=== PATIENT | male | born 1935 | race Caucasian/White ===

== ENCOUNTER 2021-03-18 08:48 | Inpatient (IN) | payer OTHER ==
[~2021-03-18] VITALS: Ht 160 cm; Wt 62.3 kg
--- NOTE | ~2021-03-18 | PROC ---
[address] [address] PROCEDURE REPORT Name: BURT EDDY Room: [address] ADM IN M.R.#: [id number] Admission: 03/18/21 Attend Phys: Ben Chiu Discharge: Date of : [birth year] Report #: [id number] THIS REPORT FOR: cc: Rafy Degroot MD, Vinod N. MD [facility],Medical Records Staff ~ For GI report, please see the Provation report in Perceptive 7 content. By: 0649Medical Records Staff [facility] /LUDY
[2021-03-18 08:51] VITALS: BP 143/78
[2021-03-18] MEDS ORDERED: CALCIUM + VITA1 EACH PO (09:00)
[2021-03-18] MEDS ORDERED: CENTRUM SILVER1 EAC5 PO (09:00)
[2021-03-18] MEDS ORDERED: SUPER B-COMPL400 MCG PO (09:01)
[2021-03-18] MEDS ORDERED: SAW PALMETTO450 MG PO (09:01)
[2021-03-18] MEDS ORDERED: IRON325 M1 PO (09:01)
[2021-03-18] MEDS ORDERED: B12 ACTIVE1000 MCG PO (09:01)
[2021-03-18] MEDS ORDERED: FISH OIL 1,001000 M3 PO (09:01)
[2021-03-18] MEDS ORDERED: D3-501250 MCG PO (09:01)
[2021-03-18] MEDS ORDERED: METAMUCIL1 EAC1 PO (09:02)
[2021-03-18] MEDS ORDERED: LUMIGAN2.5 M1 OPHTHALMIC (09:02)
[2021-03-18] MEDS ORDERED: UNISOM50 MG PO (09:02)
[2021-03-18] MEDS ORDERED: TIMOLOL GL0.5 %/5 M1 OPHTHALMIC (09:02)
[2021-03-18] MEDS ORDERED: LIPITOR10 MG PO (09:03)
[2021-03-18 09:25] LABS: ABSOLUTE BASOPHILS 0.1 thou/uL (0.0-0.2); ABSOLUTE EOSINOPHILS 0.6 thou/uL (0.0-0.7); ABSOLUTE LYMPHOCYTES 1.9 thou/uL (0.8-5.3); ABSOLUTE MONOCYTES 0.6 thou/uL (0.0-1.2); ABSOLUTE NEUTROPHILS 5.3 thou/uL (1.6-8.1); BASOPHILS 0.8 %; EOSINOPHILS 6.6 %; HEMOGLOBIN 12.2 gm/dL (14.0-18.0); LYMPHOCYTES 23.1 %; MCH 28.2 pg (26.0-34.0); MCV 85.4 fL (80.0-100.0); MONOCYTES 6.8 %; MPV 7.8 fl. (7.2-11.1); NUCLEATED RBCS 0 /100WBC; PLATELET COUNT* 279 thou/uL (150-400); POLYS 62.7 %; RBC 4.33 mil/uL (4.50-6.00); RDW-CV 14.6 % (10.5-14.5); WBC 8.4 thou/uL (4.0-11.0)
[2021-03-18 09:31] LABS: CALCIUM 8.6 mg/dL (8.5-10.1); CREATININE 1.4 mg/dL (0.6-1.3); POTASSIUM 4.3 mmol/L (3.5-5.1)
[2021-03-18 09:41] LABS: ALBUMIN 2.5 g/dL (3.4-5.0); MAGNESIUM 2.1 mg/dL (1.8-2.4); TOTAL BILIRUBIN 0.5 mg/dL (<0.1-1.0); TOTAL PROTEIN 7.2 g/dL (6.4-8.2)
--- NOTE | 2021-03-18 11:16 | EKG ---
[place] [address] ELECTROCARDIOGRAM REPORT Name: BURT EDDY Room: [facility]#: [id number] Admission: 03/18/21 Attend Phys: Discharge: Date of : [birth year] Date of Service: 03/18/21 0851 Report #: [id number] THIS REPORT FOR: //name// [facility] ED Test Date: 2021-03-18 Test Time: 08:51:24 Pat Name: BURT EDDY Department: Room: Gender: Senior Piping Designer: : 1935 Requested By: Rudy Navarro Order Number: [id number] MD: Ty Martinez Measurements Intervals [place] Rate: 74 P: 0 OH: 299 QRS: 23 QRSD: 91 T: 12 QT: 353 QTc: 392 Interpretive Statements Sinus rhythm low voltage Prolonged OH interval Baseline wander in lead(s) V5 Compared to ECG 02/26/2008 12:32:12 No significant changes Electronically Signed On 03-18-2021 11:16:44 QUALITY CONTROL REPRESENTATIVE by Ty Martinez [email or web address] <ELECTRONICALLY SIGNED> By: Ty Martinez MD, [facility] 03/18/21 1116 0851 0851 Ty Martinez MD, [facility] /EPI
--- NOTE | 2021-03-18 11:17 | EKG ---
[place] [address] ELECTROCARDIOGRAM REPORT Name: BURT EDDY Room: [facility]#: [id number] Admission: 03/18/21 Attend Phys: Discharge: Date of : [birth year] Date of Service: 03/18/21 0909 Report #: [id number] THIS REPORT FOR: //name// [facility] ED Test Date: 2021-03-18 Test Time: 09:09:10 Pat Name: BURT EDDY Department: Room: Gender: Triage Rn: : 1935 Requested By: Rudy Navarro Order Number: [id number] MD: Ty Martinez Measurements Intervals [place] Rate: 68 P: -45 UT: 293 QRS: 16 QRSD: 90 T: 4 QT: 366 QTc: 390 Interpretive Statements Sinus or ectopic atrial rhythm Ventricular premature complex Prolonged UT interval Low voltage, precordial leads Compared to ECG 03/18/2021 08:51:24 Ventricular premature complex(es) now present Electronically Signed On 03-18-2021 11:17:43 MARRIAGE COUNSELOR MINISTER by Ty Martinez [email or web address] <ELECTRONICALLY SIGNED> By: Ty Martinez MD, FACC 03/18/21 1117 Ty Martinez MD, [facility] /EPI
[2021-03-18 15:35] VITALS: BP 120/70
[2021-03-18 18:04] LABS: APTT 27.6 Seconds (25.0-31.3); INR 1.1; PROTIME 11.4 Seconds (9.20-11.50)
[2021-03-18 22:00] VITALS: BP 107/61
[2021-03-18 23:00] VITALS: BP 93/53
[2021-03-19] VITALS (30 sets, daily range): BP systolic 87–119; BP diastolic 37–81
[2021-03-19 05:09] LABS: ABSOLUTE LYMPHOCYTES 1.3 thou/uL (0.8-5.3); ABSOLUTE MONOCYTES 0.5 thou/uL (0.0-1.2); ABSOLUTE NEUTROPHILS 10.4 thou/uL (1.6-8.1); BASOPHILS 0.3 %; EOSINOPHILS 0.2 %; HEMATOCRIT 39.1 % (42.0-52.0); HEMOGLOBIN 12.7 gm/dL (14.0-18.0); LYMPHOCYTES 10.5 %; MCH 28.4 pg (26.0-34.0); MCHC 32.6 g/dL (28.0-37.0); MCV 87.1 fL (80.0-100.0); MONOCYTES 3.9 %; MPV 7.3 fl. (7.2-11.1); NUCLEATED RBCS 0 /100WBC; PLATELET COUNT* 281 thou/uL (150-400); POLYS 85.1 %; RBC 4.49 mil/uL (4.50-6.00); RDW-CV 15.3 % (10.5-14.5); WBC 12.2 thou/uL (4.0-11.0)
[2021-03-19 05:17] LABS: CALCIUM 7.7 mg/dL (8.5-10.1); CREATININE 1.4 mg/dL (0.6-1.3)
[2021-03-19 05:19] LABS: POTASSIUM 5.6 mmol/L (3.5-5.1)
--- NOTE | 2021-03-19 12:51 | NUR ---
Met with patient and /DPSUDHAKAR (Bong) at bedside to introduce role of CM. to bring copies of DPOA paperwork to put on file. Prior to admission, patient was living in a house with his . Stairs in the home, however patient uses stair lift to get to bedroom. Patient was fairly independent with ADLS. states that she does have to help him get dress sometimes, but patient could brush teeth and comb hair. Patient does not drive anymore. No hx of O2, bipap/cpap, SNF, dialysis, infustion therapy or BHS. Hx of HH through [facility] and hx of ARU at [facility]. PCP is Dr. Degroot. Patient and would like to go home with but is open to SNF or rehab, if needed. stated that if dc plan is home with , they do not want to use [facility] again. They felt that the care was not adequate. No HH preferences, other than "a good one". Discussed PPN. CM reached out to [facility] ( ). Services were started on 02/20 post dc from [facility] 02/19 and services ended on 03/09/21. Plan of Care: Patient is s/p surgery yesterday for perfurated ulcer in duodenum, per nursing. Midline incision and drains in place. O2 support via [place] (no home O2). Therapies will need to be ordered for patient to help with dc dispo. Patient to remain through the weekend. CM to continue to follow
[2021-03-20] VITALS (40 sets, daily range): BP systolic 73–175; BP diastolic 30–68
[2021-03-20 05:19] LABS: ABSOLUTE EOSINOPHILS 0.2 thou/uL (0.0-0.7); ABSOLUTE LYMPHOCYTES 1.1 thou/uL (0.8-5.3); ABSOLUTE MONOCYTES 0.6 thou/uL (0.0-1.2); ABSOLUTE NEUTROPHILS 9.9 thou/uL (1.6-8.1); BASOPHILS 0.1 %; EOSINOPHILS 1.8 %; HEMATOCRIT 35.7 % (42.0-52.0); HEMOGLOBIN 11.4 gm/dL (14.0-18.0); LYMPHOCYTES 9.2 %; MCH 28.2 pg (26.0-34.0); MCV 88.1 fL (80.0-100.0); MONOCYTES 4.8 %; MPV 7.8 fl. (7.2-11.1); NUCLEATED RBCS 0 /100WBC; PLATELET COUNT* 230 thou/uL (150-400); POLYS 84.1 %; RBC 4.05 mil/uL (4.50-6.00); RDW-CV 15.5 % (10.5-14.5); WBC 11.8 thou/uL (4.0-11.0)
[2021-03-20 05:21] LABS: CALCIUM 7.7 mg/dL (8.5-10.1); CREATININE 1.5 mg/dL (0.6-1.3); MAGNESIUM 1.8 mg/dL (1.8-2.4); PHOSPHORUS* 2.4 mg/dL (2.5-4.9); POTASSIUM 4.8 mmol/L (3.5-5.1)
[2021-03-21] VITALS (46 sets, daily range): BP systolic 76–126; BP diastolic 39–96
[2021-03-21 04:36] LABS: HEMATOCRIT 34.3 % (42.0-52.0); MCH 27.7 pg (26.0-34.0); MCV 86.6 fL (80.0-100.0); MPV 7.3 fl. (7.2-11.1); RBC 3.97 mil/uL (4.50-6.00); RDW-CV 15.2 % (10.5-14.5); WBC 20.5 thou/uL (4.0-11.0)
[2021-03-21 05:18] LABS: ALBUMIN 1.5 g/dL (3.4-5.0); CREATININE 1.3 mg/dL (0.6-1.3); POTASSIUM 4.7 mmol/L (3.5-5.1); TOTAL BILIRUBIN 0.3 mg/dL (<0.1-1.0); TOTAL PROTEIN 5.6 g/dL (6.4-8.2)
--- NOTE | 2021-03-21 06:58 | NUR ---
PT IS SLEEPING AT THIS TIME. O2 3L BNC INTACT NO ACUTE DISTRESS NOTED AT THIS TIME. PEDROZA INTACT AND PATENT DRAIING YELLOW URINE TO BEDSIDE BAG. BRYCE DRAIN INTACT DRAINING BLOODY DRAINAGE AT THIS TIME. PT CURRENTLY ON LEVOPHED DRIP, AMIRODORONE GTT AND NS. SEE EMAR FOR DETAILS. MIDLINE INCISION WITH WOUND VAC INTACT AT THIS TIME. MONITORS INTACT WITH ALARMS SET.
[2021-03-21 11:06] LABS: BE -6.7 mmol/L (-2 to +3); PCO2 41.1 mmHg (35.0-45.0)
[2021-03-21 11:14] LABS: pH 7.291 (7.340-7.450)
--- NOTE | 2021-03-21 11:25 | NUR ---
RECIEVED PT TACHYCARDIC. RHYTHM LOOKED IRREGULAR. AT ABOUT 0900 AN EKG WAS DONE WHICH CONFIRMED A. FIB WITH RVR. DR. MENDEZ WAS CALLED CARDIO HAS BEEN CONSULTED. HE SAID HE WASN'T ON HIS LIST, BUT GAVE A RECCOMENDATION OF TURNING UP AMIO GTT FROM 0.5 MG/MIN TO 1 MG/MIN FOR 6 HOURS. THIS RECCOMENDATION WAS COMMUNICATED TO DR. KEY AND AMIO GTT WAS TURNED UP TO 1 MG/MIN AT 1000. AT ABOUT 1030, DR. SAEZ WAS IN THE ROOM. PT HAS BEEN A LITTLE TACHYPNEIC SINCE HE WOKE UP ABOUT 0830, BUT HE WAS ALSO AGGITATED. PT NOW CALMER, BUT STILL TACHYPNEIC. BECAUSE OF TACHYPNEA, ABG AND CXR ORDERED BY DR. SAEZ. A. LINE NO LONGER DRAWING BLOOD OR TRANSDUCING, SO PER DR. SAEZ, A. LINE WAS REMOVED. AWAITING RESULTS FOR ABG AND CXR.
[2021-03-21 14:52] LABS: URINE BILIRUBIN NEGATIVE (Negative); URINE BLOOD 2+ (Negative); URINE COLOR YELLOW; URINE GLUCOSE-RANDOM NEGATIVE (Negative); URINE KETONES NEGATIVE (Negative); URINE LEUKOCYTES NEGATIVE (Negative); URINE NITRITE NEGATIVE (Negative); URINE PROTEIN TRACE (Negative); URINE UROBILINOGEN 0.2 E.U./dl (0.2-1.0)
[2021-03-21 14:53] LABS: URINE CLARITY HAZY
[2021-03-21 14:54] LABS: BACTERIA None Seen /HPF (None Seen); CASTS None Seen /LPF (None Seen); CRYSTALS None Seen /LPF (None Seen); SQUAMOUS 0-3 Few /LPF (0-3); URINE RBC 0-2 Rare /HPF (0-2); URINE WBC None Seen /HPF (0-5)
[2021-03-22] VITALS (50 sets, daily range): BP systolic 87–138; BP diastolic 37–108
[2021-03-22 04:51] LABS: HEMATOCRIT 34.4 % (42.0-52.0); MCH 27.8 pg (26.0-34.0); MCHC 31.9 g/dL (28.0-37.0); MCV 87.2 fL (80.0-100.0); MPV 7.1 fl. (7.2-11.1); NUCLEATED RBCS 0 /100WBC; PLATELET COUNT* 271 thou/uL (150-400); RBC 3.95 mil/uL (4.50-6.00); RDW-CV 15.3 % (10.5-14.5)
[2021-03-22 05:05] LABS: ALBUMIN 1.5 g/dL (3.4-5.0); CALCIUM 8.2 mg/dL (8.5-10.1); CREATININE 1.3 mg/dL (0.6-1.3); MAGNESIUM 1.8 mg/dL (1.8-2.4); PHOSPHORUS* 2.5 mg/dL (2.5-4.9); POTASSIUM 4.3 mmol/L (3.5-5.1); TOTAL BILIRUBIN 0.5 mg/dL (<0.1-1.0); TOTAL PROTEIN 5.7 g/dL (6.4-8.2)
--- NOTE | 2021-03-22 07:23 | NUR ---
PT AAOX2-3, VERY FORGETFUL, AND CONFUSION OVERNIGHT, CONSTANTLY YELLING FOR HELP. IVF INFUSING, CONTINUES ON LEVOPHED GTT. PRN PAIN MEDICATION ADMINISTERED, SEE EMAR FOR DOCUMENTATION. CALL LIGHT WITHIN REACH.
[2021-03-22 07:30] LABS: ABSOLUTE EOSINOPHILS 0.2 thou/uL (0.0-0.7); ABSOLUTE LYMPHOCYTES 1.3 thou/uL (0.8-5.3); ABSOLUTE MONOCYTES 0.7 thou/uL (0.0-1.2); ABSOLUTE NEUTROPHILS 19.8 thou/uL (1.6-8.1); PLATELET ESTIMATE ADEQUATE
[2021-03-22 07:31] LABS: HYPOCHROMASIA 1+
--- NOTE | 2021-03-22 14:51 | NUR ---
POC UPDATE: PT PRESENT WITH AMS, AAOX1. PER , PT NORMALLY "CAN CARRY ON A CONVERSATION." PT ON GTTS. PER MD, PT WILL POSS MOVE TO TELE IN A COUPLE OF DAYS.
--- NOTE | 2021-03-22 15:42 | 2DMMODE ---
[place] [address] 2 D/M-MODE ECHOCARDIOGRAM Name: JOANNEBURT YOUNGER Mary Room: [address] ADM IN .R.#: [id number] Admission: 03/18/21 Attend Phys: Kimberly Cui Discharge: Date of : [birth year] Date of Service: 03/22/21 1541 Report #: [id number] THIS REPORT FOR: cc: Rafy Degroot MD, Vinod N. MD Blick, David R. MD [facility] ~ APPROVED REPORT Study performed: 03/22/2021 14:51:21 EXAM: Comprehensive 2D, Doppler, and color-flow Echocardiogram Patient Location: In-Patient Room #: [facility] Status: routine BSA: 1.75 HR: 108 bpm BP: 87/62 mmHg Rhythm: Atrial Fibrillation Other Information Study Quality: Good Indications Atrial Fibrillation 2D Dimensions IVSd: 7.55 (7-11mm) LVOT Diam: 20.35 (18-24mm) LVDd: 37.19 mm PWd: 8.33 (7-11mm) Ascending Ao: 34.69 (22-36mm) LVDs: 28.13 (25-40mm) Aortic Root: 34.35 mm Volumes Left Atrial Volume (Systole) LA ESV Index: 18.60 mL/m2 Aortic Valve AoV Peak Lam.: 1.82 m/s AO Peak Gr.: 13.21 mmHg LVOT Max P.61 mmHg AO Mean Gr.: 6.58 mmHg LVOT Mean P.83 mmHg LVOT Max V: 0.95 m/s AO V2 VTI: 24.08 cm LVOT Mean V: 0.62 m/s IVAN (VTI): 1.58 cm2 LVOT V1 VTI: 11.69 [place] [address] 2 D/M-MODE ECHOCARDIOGRAM Name: BURT EDDY Room: [address] IN ..#: [id number] Admission: 03/18/21 Attend Phys: Kimberly Cui Discharge: Date of : [birth year] Date of Service: 03/22/21 1541 Report #: [id number] TDI Medial E' Lam.: 0.18 m/s Pulmonary Valve PV Peak Lam.: 0.93 m/s PV Peak Gr.: 3.43 mmHg Tricuspid Valve RAP Estimate: 5.00 mmHg TR Peak Gr.: 48.25 mmHg RVSP: 53.00 mmHg PA Pressure: 53.00 mmHg Left Ventricle The left ventricle is normal size. There is normal LV segmental wall motion. There is normal left ventricular wall thickness. Left ventricular systolic function is normal. The left ventricular ejection fraction is within the normal range. LVEF is 65-70%. This study is not technically sufficient to allow evaluation of the LV diastolic function due to atrial fibrillation. Right Ventricle Right ventricle is dilated. The right ventricular systolic function is normal. Atria The left atrium size is normal. The right atrium size is normal. Aortic Valve Aortic valve is calcified. No aortic regurgitation is present. Mild aortic stenosis. Mitral Valve The mitral valve is normal in structure. Mild mitral regurgitation. No evidence of mitral valve stenosis. Tricuspid Valve The tricuspid valve is normal in structure. Mild tricuspid regurgitation estimated pa pressure 50 mm Hg Pulmonic Valve The pulmonary valve is normal in structure. There is no pulmonic valvular regurgitation. Great Vessels The aortic root is normal in size. IVC [place] [address] 2 D/M-MODE ECHOCARDIOGRAM Name: JOANNEBURT YOUNGER Room: [address] IN [facility]#: [id number] Admission: 03/18/21 Attend Phys: Kimberly Cui Discharge: Date of : [birth year] Date of Service: 03/22/21 1541 Report #: [id number] Pericardium There is no pericardial effusion. <Conclusion> LVEF is 65-70%. Mild mitral regurgitation. Mild tricuspid regurgitation estimated pa pressure 50 mm Hg Mild aortic stenosis. <ELECTRONICALLY SIGNED> By: Ty Martinez MD, FACC 03/22/21 1541 1541 1541 Ty Martinez MD, FACC /INF
--- NOTE | 2021-03-22 16:58 | EKG ---
[place] [address] ELECTROCARDIOGRAM REPORT Name: BURT EDDY Room: [address] ADM IN M.R.#: [id number] Admission: 03/18/21 Attend Phys: Kimberly Cui Discharge: Date of : [birth year] Date of Service: 03/21/21 0939 Report #: [id number] THIS REPORT FOR: //name// [facility] Test Date: 2021-03-21 Test Time: 09:39:16 Pat Name: BURT EDDY Department: Room: [address] Gender: M Vacuum Cleaner Assembler: LORRI : 1935 Requested By: Kimberly Cui Order Number: [id number] Jess MD: Ty Martinez Measurements Intervals [place] Rate: 103 P: SC: QRS: 33 QRSD: 88 T: -32 QT: 299 QTc: 392 Interpretive Statements Atrial fibrillation Low voltage, extremity leads Minimal ST depression, inferior leads Baseline wander in lead(s) II,III,aVR,aVL,aVF Compared to ECG 03/18/2021 09:09:10 ST (T wave) deviation now present Ectopic atrial rhythm no longer present Electronically Signed On 03-22-2021 16:58:47 UPPER CUTTER MACHINE by Ty Martinez [email or web address] <ELECTRONICALLY SIGNED> By: Ty Martinez MD, [facility] 03/22/21 1658 8 Ty Martinez MD, [facility] /EPI
[2021-03-23] VITALS (22 sets, daily range): BP systolic 95–152; BP diastolic 46–89
[2021-03-23 06:40] LABS: HEMATOCRIT 32.2 % (42.0-52.0); HEMOGLOBIN 10.3 gm/dL (14.0-18.0); MCH 27.4 pg (26.0-34.0); MCV 85.7 fL (80.0-100.0); MPV 6.7 fl. (7.2-11.1); RBC 3.76 mil/uL (4.50-6.00); RDW-CV 15.2 % (10.5-14.5); WBC 16.2 thou/uL (4.0-11.0)
[2021-03-23 06:58] LABS: ALBUMIN 1.3 g/dL (3.4-5.0); CALCIUM 8.2 mg/dL (8.5-10.1); CREATININE 1.3 mg/dL (0.6-1.3); POTASSIUM 3.9 mmol/L (3.5-5.1); TOTAL BILIRUBIN 0.4 mg/dL (<0.1-1.0); TOTAL PROTEIN 5.3 g/dL (6.4-8.2)
[2021-03-23 15:54] LABS: BF RBC 2531 /mm3; TOTAL CELL COUNT 4273 /mm3
[2021-03-23 16:01] LABS: CLARITY HAZY; TOTAL VOLUME 910 ml
[2021-03-23 16:02] LABS: SOURCE PLEURAL FLUID
[2021-03-23 16:19] LABS: BF LYMPHOCYTES 5 %; BF POLYS 95 %
[2021-03-23 17:06] LABS: BE -1.4 mmol/L (-2 to +3); PCO2 VENOUS 50.8 mmHg (41.0-51.0); PO2 VENOUS 106.5 mmHg (35.0-45.0)
[2021-03-23 17:35] LABS: CALCIUM 8.2 mg/dL (8.5-10.1); CREATININE 1.2 mg/dL (0.6-1.3); POTASSIUM 3.6 mmol/L (3.5-5.1)
[2021-03-23 18:53] LABS: BE -1.8 mmol/L (-2 to +3); PCO2 41.6 mmHg (35.0-45.0); pH 7.369 (7.340-7.450)
[2021-03-23 18:55] LABS: PO2 58.4 mmHg (75.0-100.0)
[2021-03-24] VITALS (10 sets, daily range): BP systolic 103–117; BP diastolic 47–65
[2021-03-24 05:26] LABS: ABSOLUTE EOSINOPHILS 0.7 thou/uL (0.0-0.7); ABSOLUTE LYMPHOCYTES 1.2 thou/uL (0.8-5.3); ABSOLUTE NEUTROPHILS 12.8 thou/uL (1.6-8.1); BASOPHILS 0.3 %; EOSINOPHILS 4.5 %; HEMATOCRIT 28.4 % (42.0-52.0); HEMOGLOBIN 9.3 gm/dL (14.0-18.0); LYMPHOCYTES 7.4 %; MCH 28.3 pg (26.0-34.0); MCHC 32.7 g/dL (28.0-37.0); MCV 86.4 fL (80.0-100.0); MONOCYTES 6.5 %; NUCLEATED RBCS 0 /100WBC; PLATELET COUNT* 230 thou/uL (150-400); POLYS 81.3 %; RBC 3.29 mil/uL (4.50-6.00); RDW-CV 15.5 % (10.5-14.5); WBC 15.8 thou/uL (4.0-11.0)
[2021-03-24 05:32] LABS: ALBUMIN 2.1 g/dL (3.4-5.0); CALCIUM 8.1 mg/dL (8.5-10.1); CREATININE 1.3 mg/dL (0.6-1.3); MAGNESIUM 2.2 mg/dL (1.8-2.4); TOTAL BILIRUBIN 0.5 mg/dL (<0.1-1.0); TOTAL PROTEIN 5.4 g/dL (6.4-8.2)
--- NOTE | 2021-03-24 10:40 | EKG ---
[place] [address] ELECTROCARDIOGRAM REPORT Name: BURT EDDY Room: [address] ADM IN M.R.#: [id number] Admission: 03/18/21 Attend Phys: Kimberly Cui Discharge: Date of : [birth year] Date of Service: 03/24/21 1028 Report #: [id number] THIS REPORT FOR: //name// [facility] Test Date: 2021-03-24 Test Time: 10:28:04 Pat Name: BURT EDDY Department: Room: [address] Gender: M Automation Controls Expert: NEREIDA : 1935 Requested By: Kirstin Norman Order Number: [id number] Reading MD: Ty Martinez Measurements Intervals [place] Rate: 62 P: 0 NE: 179 QRS: 21 QRSD: 74 T: QT: 524 QTc: 533 Interpretive Statements atrial fibrillation Low voltage, extremity leads Prolonged QT interval Baseline wander in lead(s) V1 Compared to ECG 03/21/2021 09:39:16 Prolonged QT interval now present rate has slowed Electronically Signed On 03-24-2021 10:40:34 AUTOMOTIVE TIRE TESTING SUPERVISOR by Ty Martinez [email or web address] <ELECTRONICALLY SIGNED> By: Ty Martinez MD, FACC 03/24/21 1040 1028 1028 Ty Martinez MD, FACC /EPI
[2021-03-24 17:11] LABS: CALCIUM 8.1 mg/dL (8.5-10.1); CREATININE 1.4 mg/dL (0.6-1.3); POTASSIUM 3.6 mmol/L (3.5-5.1)
--- NOTE | 2021-03-24 17:18 | NUR ---
POC UPDATE: PT IS ON 3L O2. ABX.
--- NOTE | 2021-03-24 17:22 | CON ---
[address] [address] CONSULTATION Name: BURT EDDY Room: [address] IN .R.#: [id number] Admission: 03/18/21 Attend Phys: Ben Chiu Discharge: Date of : [birth year] Report #: [id number] THIS REPORT FOR: cc: Rafy Degroot MD, Vinod N. MD Namin, Farid M. MD ~ DATE OF CONSULTATION: 03/19/2021 REASON FOR CONSULTATION: Abnormal CT. HISTORY OF PRESENT ILLNESS: This is an 85-year-old male with history of abdominal pain, which has been going on for a few days. The patient presented to Emergency Room with the same complaint and found to have perforated viscus as there was air in the intraabdominal cavity. There was also a colonic mass noted in the CT. Subsequently, the patient was taken to OR for exploratory laparotomy and a perforated duodenal ulcer was noted, which was repaired with omental patch and gastrojejunostomy feeding tube was placed. We were consulted in reference to patient's colon findings. Currently, the patient is confused, complaining of abdominal pain and is not cooperative with our questioning. PAST MEDICAL AND SURGICAL HISTORY: Significant for dyslipidemia, iron deficiency anemia, history of hernia repair, bowel obstruction, tonsillectomy, appendectomy. ALLERGIES: Significant to PENICILLIN. MEDICATIONS: Please refer to MAR. SOCIAL HISTORY: The patient lives at home with his . Denies tobacco or alcohol use. FAMILY HISTORY: Noncontributory. PHYSICAL EXAMINATION: VITAL SIGNS: Blood pressure of 108/69, respirations 18, pulse 88, temperature is 36.7 centigrade. LUNGS: Clear. CARDIOVASCULAR: Regular. ABDOMEN: Soft, tender to palpation. Jejunostomy tube in place. NEUROLOGIC: The patient is somewhat confused [place] [address] CONSULTATION Name: JOANNEBURT YOUNGER Room: [address]#: [id number] Admission: 03/18/21 Attend Phys: Ben Chiu Discharge: Date of : [birth year] Report #: [id number] LABORATORY DATA: Reveal WBC of 12.2, hemoglobin is 12.7, and platelets 281. Sodium is 138, potassium 5.6, BUN is 23, creatinine 1.4. INR is 1.1, glucose is 101. IMAGING: CT of abdomen and pelvis on admission revealed free intraperitoneal air consistent with bowel perforation. There is a small gallstone and fluid around the gallbladder. There is also a significant abnormality in the sigmoid colon and descending colon junction, which is concerning for a mass or a tumor in this region. ASSESSMENT AND PLAN: The patient with perforated duodenal ulcer, status post omental patch with gastrojejunostomy tube placement. The patient should be on Protonix IV b.i.d. We will consider EGD and colonoscopy in 2 months. We will continue monitoring the patient progress in the hospital. <ELECTRONICALLY SIGNED> By: Saturnino Leigh MD 03/24/21 1722 1629 1921Saturnino Leigh MD /nt
[2021-03-25] VITALS (42 sets, daily range): BP systolic 18–124; BP diastolic 44–66
[2021-03-25 05:18] LABS: HEMATOCRIT 27.5 % (42.0-52.0); MCH 28.6 pg (26.0-34.0); MCHC 32.7 g/dL (28.0-37.0); MCV 87.5 fL (80.0-100.0); MPV 7.2 fl. (7.2-11.1); RBC 3.14 mil/uL (4.50-6.00); RDW-CV 15.7 % (10.5-14.5); WBC 16.8 thou/uL (4.0-11.0)
[2021-03-25 05:53] LABS: CALCIUM 8.2 mg/dL (8.5-10.1); CREATININE 1.5 mg/dL (0.6-1.3); POTASSIUM 3.8 mmol/L (3.5-5.1)
[2021-03-25 11:46] LABS: DIRECT BILIRUBIN 0.1 mg/dL (<0.1-0.3); TOTAL BILIRUBIN 0.4 mg/dL (<0.1-1.0); TOTAL PROTEIN 6.1 g/dL (6.4-8.2)
[2021-03-25 15:14] LABS: CALCIUM 8.1 mg/dL (8.5-10.1); CREATININE 1.6 mg/dL (0.6-1.3); MAGNESIUM 2.3 mg/dL (1.8-2.4); POTASSIUM 4.6 mmol/L (3.5-5.1)
[2021-03-26] VITALS (36 sets, daily range): BP systolic 74–174; BP diastolic 19–112
[2021-03-26 05:14] LABS: HEMATOCRIT 24.9 % (42.0-52.0); HEMOGLOBIN 7.9 gm/dL (14.0-18.0); MCH 28.1 pg (26.0-34.0); MCHC 31.5 g/dL (28.0-37.0); MCV 89.1 fL (80.0-100.0); MPV 7.4 fl. (7.2-11.1); RBC 2.8 mil/uL (4.50-6.00); RDW-CV 16.1 % (10.5-14.5); WBC 11.9 thou/uL (4.0-11.0)
[2021-03-26 05:32] LABS: CALCIUM 7.9 mg/dL (8.5-10.1); CREATININE 1.6 mg/dL (0.6-1.3); POTASSIUM 4.3 mmol/L (3.5-5.1)
--- NOTE | 2021-03-26 07:07 | NUR ---
ASSUMED PT CARE AT APPROX 1930. PT IS AWAKE-CONFUSED AND RESTLESS. AFIB ON THE RADIATION ONCOLOGY THERAPIST. NO DESATURATIONS NOTED ON 3L OF O2. PRECEDEX TITRATED CHARTED. PT RESTED ON AND OFF THROUGH THE NIGHT. DECREASED URINE OUTPUT, DR HYLTON AWARE, INCREASE IVF RATE TO 120 ORDERED. KEPT CLOSELY MONITORED.
[2021-03-26 10:07] LABS: BODY FLUID PROTEIN 2.5 g/dL (())
--- NOTE | 2021-03-26 11:00 | NUR ---
POC UPDATE: PRECEDEX. PLAN ENEMA, MAG. NO WEEKEND NEEDS.
[2021-03-26 13:07] LABS: CREATININE 1.5 mg/dL (0.6-1.3); MAGNESIUM 2.3 mg/dL (1.8-2.4)
[2021-03-27] VITALS (23 sets, daily range): BP systolic 132–199; BP diastolic 62–100
[2021-03-27 05:41] LABS: ABSOLUTE EOSINOPHILS 0.5 thou/uL (0.0-0.7); ABSOLUTE LYMPHOCYTES 1.2 thou/uL (0.8-5.3); ABSOLUTE MONOCYTES 0.6 thou/uL (0.0-1.2); ABSOLUTE NEUTROPHILS 13.8 thou/uL (1.6-8.1); BASOPHILS 0.3 %; EOSINOPHILS 3.1 %; HEMATOCRIT 25.9 % (42.0-52.0); HEMOGLOBIN 8.3 gm/dL (14.0-18.0); LYMPHOCYTES 7.7 %; MCHC 32.2 g/dL (28.0-37.0); MCV 86.8 fL (80.0-100.0); MONOCYTES 3.7 %; MPV 7.6 fl. (7.2-11.1); NUCLEATED RBCS 0 /100WBC; POLYS 85.2 %; RBC 2.98 mil/uL (4.50-6.00); RDW-CV 16.1 % (10.5-14.5); WBC 16.1 thou/uL (4.0-11.0)
[2021-03-27 06:03] LABS: ALBUMIN 2.9 g/dL (3.4-5.0); CALCIUM 8.5 mg/dL (8.5-10.1); CREATININE 1.3 mg/dL (0.6-1.3); MAGNESIUM 2.4 mg/dL (1.8-2.4); POTASSIUM 4.4 mmol/L (3.5-5.1); TOTAL BILIRUBIN 0.5 mg/dL (<0.1-1.0); TOTAL PROTEIN 6.1 g/dL (6.4-8.2)
[2021-03-27 06:04] LABS: PLATELET COUNT* 247 thou/uL (150-400)
[2021-03-28] VITALS (19 sets, daily range): BP systolic 133–166; BP diastolic 59–80
[2021-03-29] VITALS (7 sets, daily range): BP systolic 121–149; BP diastolic 51–78
--- NOTE | 2021-03-29 10:02 | NUR ---
PTS TUBE FEED RATE INCREASED TO 40ML/HR
--- NOTE | 2021-03-29 15:41 | NUR ---
CM FOLLOWUP PT MEETING WITH PT AND OT TO DETERMINE ELEIGIBILITY FOR REHAB OR SKILLED. PT OPEN TO SKILLED, BUT IDEALLY SEEKING DC HOME WITH HH. CM TO FOLLOWUP.
--- NOTE | 2021-03-29 16:06 | PATH ---
[address] [address] PATHOLOGY RPT PROCEDURE Name: BURT EDDY Room: [address] IN [facility]#: [id number] Admission: 03/18/21 Date of : [birth year] Discharge: Report #: [id number] Path Case #: [id number] Note [facility] Accession Number: [id number] TESTS RESULT FLAG UNITS REF RANGE LAB Clinician Provided Cytology Information No. of containers..01 Other (Miscellaneous) Source: RIGHT PLEURAL FLUID DIAGNOSIS: 02 RIGHT PLEURAL FLUID NEGATIVE FOR MALIGNANT CELLS. REACTIVE MESOTHELIAL CELLS AND ABUNDANT ACUTE INFLAMMATION. THIS INTERPRETATION INCLUDES EVALUATION OF A CELL BLOCK. Signed out by: 02 Alan Rain MD, Pathologist NPI- [id number] Performed by: 01 Haresh Patel II, Refrigeration Insulator ([facility]) Gross description: 01 60 ML, SALMERON YELLOW, CLOUDY /LCS 03/25/2021 0227 Local FLAG LEGEND: L-Low Normal,H-High Normal,LL-Alert Low,HH-Alert High <-Panic Low,>-Panic High,A-Abnormal,AA-Critical Abnormal Performed at: [address] [place] [address] Justin Bowman MD, [address] [place] [address] [address] [place] [address] Alan Rain MD, Specimen Comment: A courtesy copy of this report has been sent to [phone], [phone] Specimen Comment: [phone] Specimen Comment: Report sent to / DR DARNELL Performed at: [address], [place], [place] [id number] MD Justin Bowman MD Phone: [phone]
--- NOTE | 2021-03-29 16:22 | CON ---
[address] [address] CONSULTATION Name: BURT EDDY Room: [address] IN M.R.#: [id number] Admission: 03/18/21 Attend Phys: Ben Chiu Discharge: Date of : [birth year] Report #: [id number] THIS REPORT FOR: cc: Rafy Degroot MD, Vinod N. MD Pervez, Adeel MD ~ DATE OF CONSULTATION: 03/23/2021 REQUESTING PHYSICIAN: Darío Hester MD INDICATION FOR CONSULTATION: Pleural effusions/anasarca and severe hypoalbuminemia. HISTORY OF PRESENT ILLNESS: This is an 85-year-old gentleman. His past medical history is as mentioned below. He does not have any previous known history of a cardiac or respiratory disease. He is also a lifetime nonsmoker and he has had 3 doses of mRNA COVID-19 vaccine. The patient was recently admitted to [facility]. He has a history of multiple hernias in the past while at [facility] and told that he was found to have a colon mass and a perforated bowel, for which he underwent surgery. He presented here again with acute abdomen at this time and he was noted to have a perforated peptic ulcer for which he has had a surgery performed again. The patient currently has a GJ tube in place as well. The patient initially did have acute renal insufficiency with a creatinine rising up to 1.5. He also was hypotensive and has received large amounts of IV fluids as a result, has been on vasopressors as well. This morning, he had significant bilateral pleural effusions on the x-ray, more on the right than the left. He has had 2 CTs performed as well, which do show fluid overload and infiltrates, no pulmonary emboli. He does, however, have pulmonary hypertension. We proceeded to performing a thoracentesis on the right side. He currently is around 5-6 liters nasal cannula, saturating in the low 90s. Currently, he is hemodynamically stable. He has mild swelling of lower extremities. He continues to complain of significant abdominal pain. He has just been started on trickle tube feeds by the Surgery Service. The patient provided limited responses to questions asked for review of systems. Review of systems as obtained from the patient is negative except as mentioned above for 12 points, but it does not appear to me that the patient fully understood the questions asked for review of systems. PAST MEDICAL HISTORY: Recent surgery for colon mass/[place] [address] CONSULTATION Name: BURT EDDY Room: [address] IN [facility]#: [id number] Admission: 03/18/21 Attend Phys: Ben Chiu Discharge: Date of : [birth year] Report #: [id number] perforated peptic ulcer as above, status post GJ tube placement. Echocardiogram performed recently shows a normal left ventricular ejection fraction, mild aortic stenosis, pulmonary artery systolic in the low 50s, appendectomy, tonsillectomy. SOCIAL HISTORY: Lifetime nonsmoker. No known history of heavy alcohol use or illegal drug use. CURRENT MEDICATIONS: List in [facility] reviewed. HOME MEDICATIONS: List also in [facility] reviewed. ALLERGIES: REPORTED ALLERGY TO PENICILLIN. He currently is on meropenem. He is tolerating it without reaction. FAMILY HISTORY: No pertinent family history. IMMUNIZATION HISTORY: Three doses of an mRNA COVID-19 vaccine. PHYSICAL EXAMINATION: GENERAL: He is alert, awake and oriented, provides a limited history. VITAL SIGNS: Though, the pulse of 82 and a blood pressure of 126/67, heart rate in the low 90s on 5 liters nasal cannula. Respiratory rate mildly elevated to 22. He is afebrile with a temperature of 36.8 now, did have a high-grade fever up to 38.0 yesterday. HEENT: Head is normocephalic and atraumatic. Pupils are equal and reactive. There is no throat erythema. NECK: Does not show raised JVP, asymmetry, mass or lymph nodes. CHEST: Symmetrical expansion on inspection and palpation. On auscultation, breath sounds are decreased bilateral bases. HEART: Regular. There is a soft systolic murmur. ABDOMEN: Soft. There is some tenderness on palpation of the abdomen, but he is postop. EXTREMITIES: Lower extremities, trace edema, no calf tenderness. SKIN: Dry and intact. NEUROLOGIC: Moves all extremities bilaterally equally and spontaneously with no focal deficit identified. LABORATORY DATA: The patient's lab work is in [facility]. This is reviewed. He has severe malnutrition. Albumin is down to 1.3 this morning. Arterial blood gas, which is consistent with acute hypoxemic respiratory failure in [facility] reviewed. ____ have metabolic acidosis as well. ASSESSMENT AND PLAN: [address] [address] CONSULTATION Name: BURT EDDY Room: [address] IN [place]#: [id number] Admission: 03/18/21 Attend Phys: Ben Chiu Discharge: Date of : [birth year] Report #: [id number] 1. Acute hypoxemic respiratory failure, this is primarily due to pleural effusions. He has infiltrates as well. At first glance, pleural effusions appear to be related to third spacing and total body fluid overload, but this needs to be evaluated further. 2. Bilateral pleural effusions, right greater than left. We proceeded with thoracentesis on the right side. The fluid has been sent for analysis and would be followed. At first glance, it was suspected that this may be a transudative pleural effusion, but we will need to review further and assess. 3. Severe malnutrition/hypoalbuminemia/third spacing. I discontinued his IV fluids for now. We will start giving him albumin. We will give him small amounts of Lasix as well, but we will need to watch his blood pressure as well as creatinine closely. For now, if needed, we will use phenylephrine to maintain blood pressure. We will follow electrolytes and creatinine and if needed, we will restart crystalloid IV fluids if indicated. It will be possible that his sodium rises with these therapies ordered today. If so, we will address. However, it is noted that the primary etiology causing hypoalbuminemia is severe malnutrition and benefit from albumin will be transient unless underlying nutritional issues are addressed. I would defer to the Surgery Service regarding whether his tube feeds could be advanced. If this is not the case, then I recommend considering TPN in the meantime. 4. Pulmonary infiltrates. He does have significant bilateral pulmonary infiltrates, more at the right lung base. He has been on meropenem for several days and was more recently also started on vancomycin. Pending further evaluation, I decided to continue broad-spectrum antibiotic coverage; however, he is high risk for nephrotoxicity from vancomycin, so switch this over to linezolid. Once he is close to euvolemic state, we will plan on obtaining a repeat CT chest for following up on these infiltrates. 5. Atrial fibrillation with rapid ventricular response. He did have some episodes earlier. Cardiology Services on the case. I gave him magnesium. We will follow potassium and replace as indicated. 6. Peptic ulcer perforation/colon mass/bowel perforation. The Surgery Service is on the case. 7. Deep vein thrombosis prophylaxis. He is currently on prophylactic dose Lovenox. I would be deferring to the Surgery and Cardiology Service regarding whether at some point full anticoagulation is considered. 8. Gastrointestinal prophylaxis. He is already on b.i.d. IV Protonix. Thanks for this consultation. <ELECTRONICALLY SIGNED> By: Juancarlos Espinosa MD 03/29/21 1622 1906 Taya Espinosa MD /nt
--- NOTE | 2021-03-29 17:21 | NUR ---
PT ALERT TO SELF AND LOCATION THIS DATE. PT DOES YELL OUT FREQUENTLY, HOWEVER REQUESTS MOUTH SWABS AND OCCASIONALLY PAIN MEDICATION. PTS BRYCE DRAIN LEAKING AROUND SITE SO OUTPUT ROUGHLY INACCURATE R/T UNMEASURABLE. PT HAD X2 BMS THIS SHIFT, INCONTINENT. TPN STOPPED THIS DATE. TUBE FEEDS AT 50ML/HR, WHICH IS GOAL. RESIDUAL J-TUBE CHECKED X2 THIS SHIFT AND WAS <5ML EACH TIME. A FLUTTER/FIB ON CONTINUOUS TELE. PT TITRATED FROM 5L VIA NC TO 4L O2 THIS SHIFT. Q2H TURNS. CAME TO BEDSIDE AND STAYED FROM 9 AM TO 3PM.
[2021-03-30 04:35] VITALS: BP 156/83
[2021-03-30 04:54] LABS: ABSOLUTE BASOPHILS 0.1 thou/uL (0.0-0.2); ABSOLUTE EOSINOPHILS 0.5 thou/uL (0.0-0.7); ABSOLUTE LYMPHOCYTES 1.4 thou/uL (0.8-5.3); ABSOLUTE MONOCYTES 0.9 thou/uL (0.0-1.2); ABSOLUTE NEUTROPHILS 11.7 thou/uL (1.6-8.1); BASOPHILS 0.8 %; EOSINOPHILS 3.5 %; HEMOGLOBIN 8.8 gm/dL (14.0-18.0); LYMPHOCYTES 9.7 %; MCH 27.8 pg (26.0-34.0); MCHC 32.7 g/dL (28.0-37.0); MONOCYTES 6.2 %; MPV 7.9 fl. (7.2-11.1); NUCLEATED RBCS 0 /100WBC; PLATELET COUNT* 260 thou/uL (150-400); POLYS 79.8 %; RBC 3.18 mil/uL (4.50-6.00); RDW-CV 15.9 % (10.5-14.5); WBC 14.7 thou/uL (4.0-11.0)
[2021-03-30 05:11] LABS: CALCIUM 8.3 mg/dL (8.5-10.1); CREATININE 1.1 mg/dL (0.6-1.3); POTASSIUM 3.7 mmol/L (3.5-5.1)
--- NOTE | 2021-03-30 06:46 | NUR ---
ASSUMED PT CARE AT APPROX 1930. PT IS AWAKE, ORIENTED TO SELF AND PLACE. PT IS NOT IN DISTRESS, NO DESATURATIONS NOTED ON 4L OF O2. MIDLINE INCISION IS CDI. BRYCE DRAIN LEAKS SOME. J-TUBE FEEDING WITH JEVITY WELL TOLERATED. G TUBE TO LIS, WITH SMALL AMOUNT OF BILOUS OUTPUT. PAIN MEDS GIVEN PER JUN WITH PARTIAL RELIEF. NO ACUTE CHANGES THIS SHIFT. CALL LIGHT WITHIN REACH. HOURLY ROUNDING DONE FOR PT SAFETY. HIGH FALL PRECAUTIONS IN PLACE.
[2021-03-30 08:00] VITALS: BP 142/61
--- NOTE | 2021-03-30 09:54 | EKG ---
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 Accordion: : 1935 Requested By: Ty Martinez Order Number: [id number] Jess MD: Dmitri Ahn Measurements Intervals [place] Rate: 83 P: AL: QRS: 74 QRSD: 66 T: 8 QT: 471 QTc: 554 Interpretive Statements Atrial fibrillation Low voltage, precordial leads Borderline T abnormalities, anterior leads Prolonged QT interval Compared to ECG 03/24/2021 10:28:04 T-wave abnormality now present Electronically Signed On 03-30-2021 9:54:12 RECEIVING MANAGER by Dmitri Ahn [email or web address] <ELECTRONICALLY SIGNED> By: Dmitri Ahn MD, [facility] 03/30/21 0954 07 180 Dmitri Ahn MD, [facility] /EPI
--- NOTE | 2021-03-30 15:44 | NUR ---
CM FOLLOWUP PT NOT MEDICALLY CLEAR TO DC DUE TO ULCER. CM TO CONTINUE TO FOLLOW FOR CM NEEDS.
[2021-03-30 16:18] LABS: BE 7.5 mmol/L (-2 to +3); PCO2 VENOUS 33.6 mmHg (41.0-51.0); PO2 VENOUS 172.4 mmHg (35.0-45.0)
--- NOTE | 2021-03-30 16:31 | NUR ---
dr sharma notified of vbg resulting
--- NOTE | 2021-03-30 17:25 | NUR ---
PT GOT UP TO CHAIR WITH THERAPY THIS SHIFT. REMAINS ALERT TO SELF, OCCASIONALLY PLACE. ABG UTO BY RT; VBG OBTAINED INSTEAD. DR DARNELL READ THESE RESULTS; NO FURTHER ORDERS REGARDING. TITRATED DOWN TO 3L VIA NC. PEDROZA REMOVED THIS SHIFT PER DR ALMANZA. IJ REMOVED THIS SHIFT. G TUBE REMOVED FROM LIS THIS SHIFT. J TUBE CONTINUES TUBE FEEDS AT GOAL OF 50ML/HR. RESIDUAL <10ML EACH CHECK X3. PTS VISITED SEVERAL HOURS THIS SHIFT.
[2021-03-30 20:00] VITALS: BP 141/83
[2021-03-31 00:30] VITALS: BP 131/69
[2021-03-31 04:39] VITALS: BP 141/69
--- NOTE | 2021-03-31 07:52 | NUR ---
NO ACUTE CHANGES OVER NIGHT. PT IS STILL CONFUSED BUT AAN ANSWER SOME SIMPLE QUESTIONS AND CAN FOLLOW SIMPLE COMMANDS. JEVITY FEEDING THROUGH J-TUBE WELL TOLERATED NO RESIDUALS NOTED. PAIN MEDS GIVEN PER MAR. PT IS INCONTINENT OF BOWEL AND BLADDER. PT IS KEPT CLEAN AND DRY NEED, POSITION CHANGES DONE. PT IS CLOSELY MONITORED
[2021-03-31 09:15] VITALS: BP 130/62
[2021-03-31 12:00] VITALS: BP 133/73
[2021-03-31 16:00] VITALS: BP 131/64
[2021-03-31 16:06] LABS: HEMATOCRIT 29.3 % (42.0-52.0); HEMOGLOBIN 9.5 gm/dL (14.0-18.0); MCH 27.7 pg (26.0-34.0); MCHC 32.5 g/dL (28.0-37.0); MCV 85.2 fL (80.0-100.0); MPV 7.3 fl. (7.2-11.1); RBC 3.44 mil/uL (4.50-6.00); RDW-CV 16.1 % (10.5-14.5); WBC 14.9 thou/uL (4.0-11.0)
[2021-03-31 16:13] LABS: CALCIUM 8.7 mg/dL (8.5-10.1); CREATININE 1.1 mg/dL (0.6-1.3); POTASSIUM 4.2 mmol/L (3.5-5.1)
--- NOTE | 2021-03-31 17:17 | NUR ---
CM FOLLOWUP PT NOT MEDICALLY CLEAR. PT WORKING WELL WITH THERAPIES AND OPEN TO REHAB SERVICES. REHAB CONSULT TO BE SUBMITTED.
--- NOTE | 2021-03-31 18:57 | NUR ---
Assumed care of pt at 0700, received report from EVIE Painter. Upon assessment, pt crying out in pain and for help. Pt is A&OX2, self and place, with confusion and forgetfulness noted. Pt has c/o severe pain in the abd region. Pt is post op abd surgery (03/19/21). Pt afebrile at the start of shift and at 1700 had a low grade temp of 99.9F. Pt's lungs are course and diminished, NPC, 2L NC, pt's respirations vary from regular rates to dyspnic episodes with positioning. Pt's monitor showing Afib with occ PVCs, HR controlled, BP within normal range for pt at 130/62. Pt has 1/1 pulses, non pitting edema in the BLE, and 1-2+ pitting edema in the hips and pelvic region. Pt has hypo-normoactive BSX4. Abd is firm, distended, tender upon any palpation. Pt's abdomen has become slightly larger and more distended than at the beginning of this RN's start of shift. Pt still has the midline incision wound covered with dressings. RUQ BRYCE drain to bulb suction with a change in output over the course of the shift. BRYCE drain has had increased secretions/drainage with the first dump measuring at 80mls, second: 25mls, and the third: over 100mls at 1700. Drainage is noted to be yellow with small blood clots from time to time. Pt still has GJ tube in place with tubefeeds running into the J tube at 50mls/hr (Jevity 1.5) which was at goal rate for pt. Due to increased pain, distention, and drainage, tube feeds were held per Dr. Cui's verbal order at the bedside around [id number] today. Surgical team aware and no further orders were received from them at this time. Pt still having extreme pain and distention after several hours of the tubefeeds being shut off. G tube was clamped but d/t distention/pain, G tube back to LIS. Small brown drainage noted (10mls). Pt's last BM was monday night/early Monday morning, however pt did not have a BM on this RN's shift. Pt given scheduled suppository and Lactulose. Monitoring pt's bowel status. Ellis D/C'd yesterday (03/30), pt is incontinent of both bowel and bladder. Bladder scan performed, 188mls max in pt's bladder. Other than the surgical wounds and incisions, pt's skin is intact. Pt's at the bedside for a majority of the day. RN consulted and reported pt's condition to Dr. Cui, new orders received. IVF started, Zosyn to be given on next shift, and a CTa of abd/pelvis with contrast ordered. Will continue to monitor and make changes to pt's care as ordered and needed.
[2021-03-31 20:00] VITALS: BP 165/88
[2021-04-01] VITALS (7 sets, daily range): BP systolic 118–151; BP diastolic 50–83
[2021-04-01 04:15] LABS: ABSOLUTE BASOPHILS 0.1 thou/uL (0.0-0.2); ABSOLUTE EOSINOPHILS 0.5 thou/uL (0.0-0.7); ABSOLUTE LYMPHOCYTES 1.2 thou/uL (0.8-5.3); ABSOLUTE MONOCYTES 1.2 thou/uL (0.0-1.2); ABSOLUTE NEUTROPHILS 12.1 thou/uL (1.6-8.1); BASOPHILS 0.4 %; EOSINOPHILS 3.4 %; HEMATOCRIT 28.6 % (42.0-52.0); HEMOGLOBIN 9.2 gm/dL (14.0-18.0); LYMPHOCYTES 7.8 %; MCH 27.9 pg (26.0-34.0); MCHC 32.3 g/dL (28.0-37.0); MCV 86.3 fL (80.0-100.0); MONOCYTES 7.9 %; MPV 7.5 fl. (7.2-11.1); NUCLEATED RBCS 0 /100WBC; PLATELET COUNT* 314 thou/uL (150-400); POLYS 80.5 %; RBC 3.31 mil/uL (4.50-6.00); RDW-CV 16.6 % (10.5-14.5)
[2021-04-01 05:06] LABS: CALCIUM 8.3 mg/dL (8.5-10.1); CREATININE 1.1 mg/dL (0.6-1.3); MAGNESIUM 2.3 mg/dL (1.8-2.4); PHOSPHORUS* 4.3 mg/dL (2.5-4.9); POTASSIUM 4.3 mmol/L (3.5-5.1)
--- NOTE | 2021-04-01 07:43 | NUR ---
PATIENT SLEPT PART OF THE NIGHT. BAUTISTA WAS TAKEN DOWN FOR ABDOMINAL CT ORDERED. PATIENT WAS STILL YELLING OUT IN PAIN AFTER HYDROCODONE WAS GIVEN. DR DARNELL WAS CALLED ORDER RECEIVED TO RESTART HIS DILAUDID IV. PAIN MEDICINE WAS GIVEN TWICE. IV FLUIDS AND ZOSYN WERE STARTED ORDERED. WILL CONTINUE TO MONITOR.
--- NOTE | 2021-04-01 11:10 | NUR ---
The patient will be scheduled thoracentesis and paracentesis tomorow because the patient was given Lovenox. The lovenox was placed on hold and the tube feeding will remain off.
--- NOTE | 2021-04-01 14:12 | NUR ---
CM FOLLOWUP PT NOT MEDICALLY CLEAR. PT TO HAVE ABCESS DRAINED BY IR. REHAB CONSULT SUBMITTED. CM TO EVANGELISTA.
[2021-04-02] VITALS (11 sets, daily range): BP systolic 106–173; BP diastolic 49–96
[2021-04-02 05:55] LABS: CALCIUM 8.5 mg/dL (8.5-10.1); CREATININE 1.2 mg/dL (0.6-1.3); HEMATOCRIT 28.7 % (42.0-52.0); HEMOGLOBIN 9.5 gm/dL (14.0-18.0); MCH 28.6 pg (26.0-34.0); MCHC 33.2 g/dL (28.0-37.0); MCV 86.1 fL (80.0-100.0); MPV 7.6 fl. (7.2-11.1); POTASSIUM 4.3 mmol/L (3.5-5.1); RBC 3.33 mil/uL (4.50-6.00); RDW-CV 16.3 % (10.5-14.5); WBC 15.2 thou/uL (4.0-11.0)
[2021-04-02 06:09] LABS: APTT 32.2 Seconds (25.0-31.3); INR 1.2; PROTIME 11.8 Seconds (9.20-11.50)
--- NOTE | 2021-04-02 07:00 | NUR ---
PATIENT SLEPT MOST OF THE NIGHT. IV FLUIDS AND ANTIBIOTICS WERE GIVEN ORDERED. PATIENT REMAINS NPO. IR TO DRAIN LIVER ABCESS AND DO THORACENTESIS TODAY. PAIN MEDICINE WAS GIVEN NEEDED. WILL CONTINUE TO MONITOR.
--- NOTE | 2021-04-02 11:53 | NUR ---
0800 The patient left to have the liver abscess drained and returned at 0900 drain in right upper chest. The patient is alert. His at the bedside.
--- NOTE | 2021-04-02 15:26 | NUR ---
1520 Dr Menchaca paged the surgicial site where the drain was placed has blood tinge draininage coming around the bandage. the site was checked 1411 the site was dry and intact.
--- NOTE | 2021-04-02 17:52 | NUR ---
6862 MD called back updated. The patient dressing was changed. Pressure was held. The bleeding has stopped. the patient is alert
--- NOTE | 2021-04-02 18:42 | NUR ---
CM FOLLOWUP PT DECLINED BY REHAB. PT PENDING SKILLED REFERRAL TO [facility] [phone]. CM TO FOLLOW.
[2021-04-03 00:45] VITALS: BP 180/89
[2021-04-03 04:44] VITALS: BP 139/64
--- NOTE | 2021-04-03 05:22 | NUR ---
PT AO X1-2. SPEECH IS MOSTLY UNCOMPREHENDABLE. ABD DISTENDED AND FIRM WITH DRAINS X3. JPGETTING SEROUS DRAINAGE WITH SOME CLOTS. PERIHEPATIC DRAIN HAS LITTLE DRAIAGE THAT IS MOSTLY CLEAR WITH GREENISH COLOR, JG HAVING DARK BROWN/GREEN DRAINAGE TO LIS, THERE IS ALWAYS DRAINAGE IN LINE BUT NOT MUCH MOVEMENT . PTS LT SURGICAL WOUND HAS BEEN OOZING SEROSANGUINOUS DRAINAGE AND GAUZE AND TAPE REINFORSED TO SITE. PT HAS PERIODS OF ANXIETY WHERE HE YELLS OUT. HYDROCODONE GIVEN FOR PAIN. JEVITY 1.5 CONTINUOUS AT 50/HR AND NS AT 70/HR . PT HAS HAD SEVERAL INCONTINENT EPISODES THIS PM BUT NO BM THIS SHIFT. CALL LIGHT IN REACH AND BED ALARM ON FOR PT SAFETY
[2021-04-03 08:00] VITALS: BP 145/77
[2021-04-03 09:48] LABS: HEMATOCRIT 29.8 % (42.0-52.0); HEMOGLOBIN 9.5 gm/dL (14.0-18.0); MCH 27.8 pg (26.0-34.0); MCHC 31.7 g/dL (28.0-37.0); MCV 87.8 fL (80.0-100.0); MPV 7.5 fl. (7.2-11.1); RBC 3.4 mil/uL (4.50-6.00); RDW-CV 16.8 % (10.5-14.5); WBC 11.4 thou/uL (4.0-11.0)
[2021-04-03 10:10] LABS: CALCIUM 8.1 mg/dL (8.5-10.1); CREATININE 1.4 mg/dL (0.6-1.3); POTASSIUM 3.3 mmol/L (3.5-5.1)
[2021-04-03 11:15] VITALS: BP 139/74
--- NOTE | 2021-04-03 15:14 | EKG ---
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 Repairer: FROYLAN : 1935 Requested By: Kirstin Norman Order Number: [id number] Reading MD: Vitor Jacobs Measurements Intervals [place] Rate: 97 P: NE: QRS: 34 QRSD: 86 T: -11 QT: 322 QTc: 409 Interpretive Statements Atrial fibrillation Nonspecific T abnormalities, anterior leads Compared to ECG 03/29/2021 18:08:23 Prolonged QT interval no longer present T-wave abnormality still present Electronically Signed On 04-03-2021 15:14:46 STONER HAND by Vitor Jacobs [email or web address] <ELECTRONICALLY SIGNED> By: Vitor Jacobs MD, FACC 04/03/21 1514 2 2 Vitor Jacobs MD, FAC /EPI
[2021-04-03 15:20] VITALS: BP 123/78
[2021-04-03 22:00] VITALS: BP 154/92
[2021-04-04] VITALS: BP 139/76
[2021-04-04 04:00] VITALS: BP 151/77
[2021-04-04 05:24] LABS: HEMOGLOBIN 9.3 gm/dL (14.0-18.0); MCH 27.8 pg (26.0-34.0); MCHC 31.9 g/dL (28.0-37.0); MCV 87.3 fL (80.0-100.0); MPV 7.5 fl. (7.2-11.1); RBC 3.33 mil/uL (4.50-6.00); RDW-CV 17.1 % (10.5-14.5); WBC 14.9 thou/uL (4.0-11.0)
--- NOTE | 2021-04-04 05:29 | NUR ---
PT AO X1-2 SPEACH MORE UNDERSTANDABLE TODAY ALTHOUGH HE IS MORE AGITATED AND YELLING OUT FOR HELP MORE. PT ABD IS DISTENDED, HARD AND PAINFUL TO TOUCH. HE IS ON CONTINUOUS TUBE FEED AT 50/HR WITH FLUIDS AT 50/HR. BRYCE DRAIN HAS MORE OUTPUT THAT IS NOW SANGUINOUS WITH MANY CLOTS, COOK DRAIN HAS APPROX SAME SMALL AMOUT OF DRAINAGE AND IS STILL LIGHT GREEN IN COLOR. G TUBE TO LIS CONTINUES TO HAVE NO MEASURABLE OUTPUT BUT HAS SOME DRAINAGE IN THE LINE. PT HAD LOW FEVER AT [address] LITTLEJOHN IN ORDER FOR TYLENOL, ABD XRAY AND REDUCTION IN TUBE FEED TO 40mL/HR. XRAY SHOWED MODERATE FECAL LOADING WITH LARGE BOWEL ILEUS THAT APEARS STABLE. NO DRAINAGE NOTED FROM PT SURGICAL SITES THIS PM. PT WAS YELLING OUT MOST OF THE NIGHT SO HALDOL WAS ADMINISTERED FOR PT TO RELAX AND GET SOME SLEEP. PT HAD URINE INCONTINENCE WITH NO STOOL THIS SHIFT.
[2021-04-04 05:41] LABS: CALCIUM 8.2 mg/dL (8.5-10.1); CREATININE 1.4 mg/dL (0.6-1.3); POTASSIUM 4.2 mmol/L (3.5-5.1)
[2021-04-04 08:00] VITALS: BP 112/68
[2021-04-04 12:00] VITALS: BP 110/70
[2021-04-04 15:50] VITALS: BP 106/68
[2021-04-04 22:00] VITALS: BP 114/64
[2021-04-05] VITALS (24 sets, daily range): BP systolic 77–151; BP diastolic 37–79
[2021-04-05 01:56] LABS: BE 1.8 mmol/L (-2 to +3); PCO2 40.8 mmHg (35.0-45.0); PO2 121.7 mmHg (75.0-100.0); pH 7.427 (7.340-7.450)
[2021-04-05 04:52] LABS: HEMATOCRIT 30.4 % (42.0-52.0); HEMOGLOBIN 9.8 gm/dL (14.0-18.0); MCH 27.6 pg (26.0-34.0); MCHC 32.1 g/dL (28.0-37.0); MCV 86.1 fL (80.0-100.0); RBC 3.53 mil/uL (4.50-6.00); RDW-CV 16.8 % (10.5-14.5); WBC 18.8 thou/uL (4.0-11.0)
[2021-04-05 04:59] LABS: POTASSIUM 4.7 mmol/L (3.5-5.1)
--- NOTE | 2021-04-05 05:00 | NUR ---
PT AO 1-2 ON 3L NC, ABD DISTENDED WITH ABSENT BOWEL SOUNDS. PT HAD SMALL BM THAT LOOKED MOSTLY MUCUS AND SOME YELLOW STOOL,LUNGS WERE DIMINISHED WITH NO COUGH NOTED, AROUND 0000 PT STARTED SOUNDING VERY WET WITH GURGLING SOUND IN THROAT. SUCTION WAS ATTEMPTED WITH NOTHING OUT. PT WORK OF BREATHING INCREASED AND PT NAILBEDS WERE DUSKY, SAT WAS IN 70s. NRB MASK APPIED AND PT SAT WAS IN UPPER 90s, PT RESPs WERE IN 40s AND HE WAS IN APARENT DISTRESS. ORDER FROM DR COUGHLIN RESULTED IN LASIX, STAT CXR,ABG,PEDROZA CATH AND BIPAP. ABG WAS WNL BUT PT WOB WAS INCREASED AND HR WAS UP TO 140s AT TIMES. BIPAP WAS INITIATED AND PT SEEMED TO BREATHE BETTER WITH THIS. PT HAS HAD SCANT URINE OUT WITH PEDROZA, BRYCE DRAIN IS SANGUINOUS. COOK DRAIN STILL HAS LIGHT GREEN DRAINAGE IN VERY SMALL AMOUNTS. ATIVAN WAS ADMINISTERED FOR AGITATION. CALL LIGHT IN REACH FOR PT BED ALARM ON FOR PT SAFETY,
[2021-04-05 09:08] LABS: BE -1.2 mmol/L (-2 to +3); PCO2 33.4 mmHg (35.0-45.0); PO2 80.9 mmHg (75.0-100.0); pH 7.442 (7.340-7.450)
--- NOTE | 2021-04-05 11:45 | NUR ---
Spoke to [facility] who advised that patient has been approved for SNF at [facility]. SNF auth # [id number]. Auth start date 04/02 and NRD/end date is 04/06. Patient will need to dc to SNF on 04/06, otherwise a new auth will need to be obtained. Per phsycian in rounds, patient is not medically stable to dc. Currently on bipap and will need another night to watch for signs of improvement. Updated MP. Tentative dc planned for 04/06. [facility] Ph: F: CM to continue to follow
--- NOTE | 2021-04-05 11:47 | EKG ---
[place] [address] ELECTROCARDIOGRAM REPORT Name: BURT EDDY Room: [address] ADM IN M.R.#: [id number] Admission: 03/18/21 Attend Phys: Kimberly Cui Discharge: Date of : [birth year] Date of Service: 04/05/21930 Report #: [id number] THIS REPORT FOR: //name// [facility] Test Date: 2021-04-05 Test Time: 09:31:24 Pat Name: BURT RUBIOHELUIS Department: Room: [address] Gender: M Puddler Pile Driving: KF : 1935 Requested By: Vance Menchaca Order Number: [id number] Jess MD: Ty Martinez Measurements Intervals [place] Rate: 97 P: 101 NM: 261 QRS: 12 QRSD: 68 T: -58 QT: 403 QTc: 512 Interpretive Statements Sinus rhythm Prolonged NM interval Borderline T abnormalities, diffuse leads Prolonged QT interval Compared to ECG 04/02/2021 09:23:34 Prolonged QT interval now present T-wave abnormality still present Electronically Signed On 04-05-2021 11:47:29 CLASSICS PROFESSOR by Ty Martinez [email or web address] <ELECTRONICALLY SIGNED> By: Ty Martinez MD, FACC 04/05/21 1147 0 0 Ty Martinez MD, FAC /EPI
[2021-04-05 14:20] LABS: URINE BILIRUBIN NEGATIVE (Negative); URINE BLOOD 3+ (Negative); URINE CLARITY SL CLOUDY; URINE COLOR YELLOW; URINE GLUCOSE-RANDOM NEGATIVE (Negative); URINE KETONES NEGATIVE (Negative); URINE LEUKOCYTES-REFLEX NEGATIVE (Negative); URINE NITRITE-REFLEX NEGATIVE (Negative); URINE PROTEIN TRACE (Negative); URINE SPECIFIC GRAVITY 1.015 (1.005-1.030); URINE UROBILINOGEN 0.2 E.U./dl (0.2-1.0)
[2021-04-05 14:32] LABS: BACTERIA-REFLEX 1-9 Few /HPF (None Seen); SQUAMOUS 4-10 Moderate /LPF (0-3); URINE RBC >20 Many /HPF (0-2); URINE WBC-REFLEX 0-5 Rare /HPF (0-5)
[2021-04-05 14:33] LABS: CASTS None Seen /LPF (None Seen); CRYSTALS None Seen /LPF (None Seen)
--- NOTE | 2021-04-05 15:38 | NUR ---
CM FOLLOWUP PT NOT MEDICALLY CLEAR AND EXPERIENCING A KIDNEY AND RESPIRATORY DECLINE. CM TO CONTINUE TO FOLLOW TO ASSIT WITH LINKAGE TO SKILLED OR OTHER RESOURCES.
[2021-04-05 18:34] LABS: BE -0.9 mmol/L (-2 to +3); PCO2 43.2 mmHg (35.0-45.0); PO2 77.6 mmHg (75.0-100.0)
--- NOTE | 2021-04-05 18:50 | NUR ---
I ASSUMED CARE OF THE PATIENT AT 0700. HE IS ALERT AND ORIENTED X0 AND ON BEDREST. HE IS REPOSITIONED EVERY 2 HOURS. BED IS IN THE LOW LOCKED POSITION AND CALL LIGHT IS IN REACH. PATIENT NEEDS ARE MET DURING HOURLY ROUNDING AND PAIN/ANXIETY IS PARTIALLY RELIEVED. CODE STATUS WAS CHANGED WITH AND SON DURING A DISCUSSION WITH SURGERY AFTER A DISCUSSION WITH HIMS. PULSES ARE WEAK AND THREADY AT THE BEGINNING OF MY SHIFT. BLOOD GLUCOSE IS MONITORED. HE ASPIRATES EASILY. SUCTION IS ON THE WALL AND USED DURING REPOSITIONS. SURGERY HAS DECIDED TO WAIT UNTIL HE IS STRONGER TO COMPLETE BARIUM ENEMA. DAILY ENEMA WAS GIVEN AFTER IT ARRIVED FROM PHARMACY, BUT PRODUCED NO RESULTS. UA WAS COLLECTED AND SENT. FLUIDS WERE INFUSING AND URINE OUTPUT IS MINIMAL, NEPHRO WAS CONTACTED. IT WAS SUGGESTED TO DO WATER SOLUBLE INSTEAD OF BARIUM. NO OUTPUT FROM LOWER RIGHT DRAIN, 60 CC OUTPUT FROM BRYCE DRAIN AND 55 CC URINE OUTPUT IN PEDROZA. TUBE FEEDS WEREN'T GIVEN ALL DAY AND G TUBE WAS HOOKED BACK UP TO LIS. HE WAS KEPT NPO BECAUSE OF RISK OF ASPIRATION. REPORT GIVEN TO TIGRE AND I HELPED SETTLE PATIENT IN THE ICU A TRANSFER AT 1740.
[2021-04-05 19:02] LABS: CALCIUM 8.7 mg/dL (8.5-10.1); CREATININE 2.7 mg/dL (0.6-1.3); MAGNESIUM 2.6 mg/dL (1.8-2.4)
[2021-04-05 19:27] LABS: HEMATOCRIT 32.6 % (42.0-52.0); HEMOGLOBIN 10.2 gm/dL (14.0-18.0); MCH 27.6 pg (26.0-34.0); MCHC 31.3 g/dL (28.0-37.0); MCV 88.4 fL (80.0-100.0); MPV 7.8 fl. (7.2-11.1); NUCLEATED RBCS 0 /100WBC; RBC 3.68 mil/uL (4.50-6.00); WBC 23.2 thou/uL (4.0-11.0)
[2021-04-05 19:30] LABS: PLATELET COUNT* 474 thou/uL (150-400)
--- NOTE | 2021-04-05 19:33 | NUR ---
PT TRANSFERED TO ICU AT 1730. UPON ARRIVAL PT MIN RESPONSIVE, REQUIRES STERNAL RUB IN ORDER TO AWAKEN ENOUGH TO FOLLOW COMMANDS. PT UNABLE TO ANSWER A&O QUESTIONS. DR. SANCHEZ CALLED AND GIVEN THIS INFORMATION. STAT ABG AND LABS ORDERED. ABG RESULTED AND SENT TO DR. SANCHEZ. ABG WDL. BMP/CBC PENDING. REPORT GIVEN TO EVIE MORAN. CALLED AND UPDATED ON PT CONDITION. BIPAP REMIANS AT 50%.
[2021-04-05 20:04] LABS: ABSOLUTE LYMPHOCYTES 0.9 thou/uL (0.8-5.3); ABSOLUTE NEUTROPHILS 19.3 thou/uL (1.6-8.1); PLATELET ESTIMATE INCREASED; POLYCHROMASIA Occasional
[2021-04-05 20:05] LABS: ANISOCYTOSIS 1+; HYPOCHROMASIA Occasional; MACROCYTES Occasional; MICROCYTES Occasional
--- NOTE | 2021-04-05 22:58 | NUR ---
Pt was unable to maintain his airway, oral care was provided for emesis, when it was noted that he was spraying gastric fluids when suctioned. His was notified, to determine her wishes regarding intubation, she agreed and the process was started. Hospitalist was called, RT/ED doctor was notified, adult day care worker ordered vent settings, sedation orders were received. At 2320, intubation meds were given, at 2321, a 7.5 ETT was placed, measuring 23 cm at the lip, +color change noted, + breath sounds were auscultated, and after securing the ETT, an OGT (16 Fr) was placed, with immediate return of gastric fluids. Radiology at the bedside to confirm placement of devices. Sedation meds were started at initial settings, low dose levophed was verified, infusing with maintenance fluids, with improvement in BP noted. Will continue to monitor.
--- NOTE | 2021-04-05 23:13 | NUR ---
2258 Received order to intubate pt for airway protection from Dr Raina Adams, credit administrator notified for med orders.
[2021-04-06] VITALS (54 sets, daily range): BP systolic 59–134; BP diastolic 30–77
[2021-04-06 03:40] LABS: BE 0.3 mmol/L (-2 to +3); PCO2 41.7 mmHg (35.0-45.0); PO2 71.8 mmHg (75.0-100.0); pH 7.399 (7.340-7.450)
[2021-04-06 03:56] LABS: ALBUMIN 1.7 g/dL (3.4-5.0); CALCIUM 8.4 mg/dL (8.5-10.1); CREATININE 3.2 mg/dL (0.6-1.3); MAGNESIUM 2.6 mg/dL (1.8-2.4); PHOSPHORUS* 6.7 mg/dL (2.5-4.9); POTASSIUM 4.7 mmol/L (3.5-5.1)
[2021-04-06 05:25] LABS: HEMATOCRIT 26.9 % (42.0-52.0); HEMOGLOBIN 8.4 gm/dL (14.0-18.0); MCH 27.7 pg (26.0-34.0); MCHC 31.2 g/dL (28.0-37.0); MCV 88.7 fL (80.0-100.0); MPV 8.7 fl. (7.2-11.1); RBC 3.03 mil/uL (4.50-6.00); RDW-CV 17.7 % (10.5-14.5); WBC 24.4 thou/uL (4.0-11.0)
[2021-04-06 05:31] LABS: CALCIUM 8.5 mg/dL (8.5-10.1); CREATININE 3.1 mg/dL (0.6-1.3); POTASSIUM 4.6 mmol/L (3.5-5.1)
--- NOTE | 2021-04-06 13:02 | NUR ---
ULTRA SOUND AT BEDSIDE TO DO THORACENTESIS.
--- NOTE | 2021-04-06 14:22 | NUR ---
Discharge Plan was for pt to discharge to [facility] ([facility]) , however patient was transferred back to ICU due to Ileus, and an increase in CR and WBC. Pt is now on a vent. Met with and son who are very discouraged by patient's change in status. is asking about if he is unable to do Rehab and if he could go home with home health. Discussed pt would need 24 hour assist and care and family would have decisions to make. Doctor arrived and discussed with /son that I would follow up tommorow. CM to continue to follow for discharge planning.
[2021-04-06 14:28] LABS: BF RBC 2303 /mm3; TOTAL CELL COUNT 1712 /mm3
[2021-04-06 14:44] LABS: TOTAL VOLUME 700 ml
[2021-04-06 14:45] LABS: CLARITY HAZY
[2021-04-06 15:25] LABS: BF LYMPHOCYTES 53 %; BF MONOCYTES 1 %; BF POLYS 46 %; BF TISSUE 17 /100 WBC
[2021-04-06 15:27] LABS: SOURCE PLEURAL FLUID
--- NOTE | 2021-04-06 18:23 | NUR ---
PT REMAINS INTUBATED AND ON MECHANICAL VENTILATION. PICC LINE STARTED AND TAP WATER ENEMA GIVEN WITH BROWNISH WATER RETURNED. BOWEL SOUNDS REMIAN HYPOACTIVE AND ABDOMEN REMAINS FIRM AND DISTENDED. WILL CONTINUE TO ASSESS.
--- NOTE | 2021-04-06 19:24 | NUR ---
KOBI REPORT AND CHARGE REPORT GIVEN TO JHONNY CASE.
[2021-04-07] VITALS (22 sets, daily range): BP systolic 92–135; BP diastolic 45–73
[2021-04-07 03:40] LABS: ABSOLUTE EOSINOPHILS 1.2 thou/uL (0.0-0.7); ABSOLUTE LYMPHOCYTES 1.2 thou/uL (0.8-5.3); ABSOLUTE MONOCYTES 0.8 thou/uL (0.0-1.2); ABSOLUTE NEUTROPHILS 17.9 thou/uL (1.6-8.1); BASOPHILS 0.1 %; EOSINOPHILS 5.6 %; HEMATOCRIT 23.8 % (42.0-52.0); HEMOGLOBIN 7.5 gm/dL (14.0-18.0); LYMPHOCYTES 5.8 %; MCH 27.6 pg (26.0-34.0); MCHC 31.4 g/dL (28.0-37.0); MCV 87.8 fL (80.0-100.0); MONOCYTES 3.8 %; MPV 7.7 fl. (7.2-11.1); NUCLEATED RBCS 0 /100WBC; POLYS 84.7 %; RBC 2.71 mil/uL (4.50-6.00); RDW-CV 17.2 % (10.5-14.5); WBC 21.1 thou/uL (4.0-11.0)
--- NOTE | 2021-04-07 03:54 | NUR ---
ASSUMED CARE AT 1900H, ON VENT AT 50% AND TOLERATED. ON VERSED AT 3MG AND LEVO DRIP, TITRATED. WITHDREW TO PAIN AND NOT FOLLOWING COMMADS. LOW GRADE FEVER, SPONGE BATH DONE. NO DISTRESS AND NO BLEEDING NOTED. CONTINUE MONITORING AND TOWARDS GOALS. VERSED AT 5MG/HR AND LEVO AT .22MICS.
[2021-04-07 03:58] LABS: ALBUMIN 2.1 g/dL (3.4-5.0); CALCIUM 8.1 mg/dL (8.5-10.1); CREATININE 2.6 mg/dL (0.6-1.3); MAGNESIUM 2.3 mg/dL (1.8-2.4); PHOSPHORUS* 4.1 mg/dL (2.5-4.9)
[2021-04-07 04:00] LABS: APTT 33.6 Seconds (25.0-31.3); INR 1.3; PROTIME 13.5 Seconds (9.20-11.50)
[2021-04-07 04:03] LABS: ALBUMIN 2.1 g/dL (3.4-5.0); CALCIUM 8.3 mg/dL (8.5-10.1); CREATININE 2.6 mg/dL (0.6-1.3); MAGNESIUM 2.4 mg/dL (1.8-2.4); TOTAL BILIRUBIN 0.4 mg/dL (<0.1-1.0); TOTAL PROTEIN 5.8 g/dL (6.4-8.2)
[2021-04-07 04:13] LABS: POTASSIUM 3.3 mmol/L (3.5-5.1)
[2021-04-07 04:16] LABS: PLATELET COUNT* 445 thou/uL (150-400)
[2021-04-07 08:42] LABS: BE -0.2 mmol/L (-2 to +3); PCO2 39.5 mmHg (35.0-45.0); pH 7.408 (7.340-7.450)
[2021-04-07 08:45] LABS: PO2 124.3 mmHg (75.0-100.0)
[2021-04-07 09:08] LABS: BODY FLUID PROTEIN 3.7 g/dL (())
--- NOTE | 2021-04-07 10:35 | CON ---
[address] [address] CONSULTATION Name: BURT EDDY Room: [address] ADM IN M.R.#: [id number] Admission: 03/18/21 Attend Phys: Ben Chiu Discharge: Date of : [birth year] Report #: [id number] THIS REPORT FOR: cc: Rafy Degroot MD, Vinod N. MD Khan, Abid R. MD ~ DATE OF CONSULTATION: 04/05/2021 NEPHROLOGY CONSULTATION CONSULTING PHYSICIAN: Vance Menchaca DO REASON FOR CONSULTATION: Acute kidney injury. HISTORY OF PRESENT ILLNESS: An 85-year-old gentleman who was admitted with abdominal pain, underwent imaging and was found to have a perforated duodenal ulcer. He went to surgery and is now postop. I am asked to see him because of a rise in his serum creatinine up to 2 from 1.4. He has had some hypotension and is receiving fluid boluses. There is also questionable liver abscess and healthcare-associated pneumonia. He has a Ellis catheter. He has had some diminished urine output. He did receive 100 mL of contrast on 03/31 when he underwent a CT scan. He is unable to provide any meaningful history at this time, history is obtained largely from family. No underlying chronic kidney disease. REVIEW OF SYSTEMS: Constitutional, psych, heme, eyes, ENT, respiratory, cardiac, GI, , endocrine, all negative except as documented above and as best as can be ascertained. PAST MEDICAL HISTORY: Dyslipidemia, glaucoma. FAMILY HISTORY: Not pertinent in this 85-year-old. SOCIAL HISTORY: No tobacco. PHYSICAL EXAMINATION: VITAL SIGNS: Blood pressure is 93/53, pulse 95, respirations 25, temperature 37.7. GENERAL: No acute distress. EYES: Closed. EARS: Externally normal. CARDIOVASCULAR: Regular rate. LUNGS: Diminished breath sounds. GASTROINTESTINAL: Distended with abdominal tenderness. MUSCULOSKELETAL: [place] [address] CONSULTATION Name: JAONNEMERNAKATERINABURT Mary Room: [address] IN [facility]#: [id number] Admission: 03/18/21 Attend Phys: Ben Chiu Discharge: Date of : [birth year] Report #: [id number] NEUROLOGIC: Altered mental status. PSYCHIATRIC: Disoriented. LABORATORY DATA: White cell count is 19, hemoglobin 9.8, platelets 600. Sodium 147, potassium 4.7, chloride 111, bicarbonate 26, BUN 27, creatinine 2, glucose 107, calcium 9. ASSESSMENT AND PLAN: 1. Acute kidney injury with admission creatinine of 1.4. Baseline creatinine unknown. Creatinine up to 2 on 04/05 in the setting of hypotension with a systolic blood pressure of 86 with a questionable liver abscess, healthcare-associated pneumonia, and postop perforated duodenal ulcer. He also did receive 100 mL of intravenous contrast with a CT scan on 03/31. On 03/31 CT scan kidneys showed bilateral atrophy, no hydronephrosis. 2. Chronic kidney disease, at least stage III based on CT findings. 3. Bilateral renal cysts without complex features on CT scan. 4. Status post repair of a perforated duodenal ulcer. 5. Healthcare-associated pneumonia. 6. Possible liver abscess. PLAN: 1. Mild hypernatremia. We will hydrate with hypotonic fluid. 2. Check UA. 3. Lasix has been discontinued. 4. Monitor urine output. 5. Discussed with Dr. Menchaca as well as the patient's family. Discussed the possibility of needing dialysis if urine output remains diminished with worsening kidney function. Antibiotics have been ordered. We will follow along with you. Thank you for requesting my opinion in the care and management of this patient. <ELECTRONICALLY SIGNED> By: Reji Sauceda MD 04/07/21 1035 1116 [id number] Sauceda MD /nt
[2021-04-08] VITALS (12 sets, daily range): BP systolic 105–128; BP diastolic 50–75
[2021-04-08 03:59] LABS: ABSOLUTE EOSINOPHILS 1.1 thou/uL (0.0-0.7); ABSOLUTE LYMPHOCYTES 1.1 thou/uL (0.8-5.3); ABSOLUTE MONOCYTES 0.7 thou/uL (0.0-1.2); ABSOLUTE NEUTROPHILS 11.3 thou/uL (1.6-8.1); BASOPHILS 0.3 %; EOSINOPHILS 7.5 %; HEMATOCRIT 22.9 % (42.0-52.0); HEMOGLOBIN 7.2 gm/dL (14.0-18.0); LYMPHOCYTES 7.8 %; MCH 27.1 pg (26.0-34.0); MCHC 31.4 g/dL (28.0-37.0); MCV 86.5 fL (80.0-100.0); MONOCYTES 5.2 %; MPV 8.3 fl. (7.2-11.1); NUCLEATED RBCS 0 /100WBC; PLATELET COUNT* 441 thou/uL (150-400); POLYS 79.2 %; RBC 2.65 mil/uL (4.50-6.00); RDW-CV 16.9 % (10.5-14.5); WBC 14.2 thou/uL (4.0-11.0)
[2021-04-08 04:15] LABS: ALBUMIN 1.5 g/dL (3.4-5.0); CALCIUM 7.5 mg/dL (8.5-10.1); CREATININE 1.7 mg/dL (0.6-1.3); MAGNESIUM 1.9 mg/dL (1.8-2.4); POTASSIUM 3.1 mmol/L (3.5-5.1); TOTAL BILIRUBIN 0.4 mg/dL (<0.1-1.0)
[2021-04-08 12:21] LABS: BE -1.4 mmol/L (-2 to +3); PCO2 28.9 mmHg (35.0-45.0); PO2 97.1 mmHg (75.0-100.0); pH 7.489 (7.340-7.450)
[2021-04-08 13:25] LABS: NUCLEATED RBCS 0 /100WBC; RBC 2.84 mil/uL (4.50-6.00)
[2021-04-08 13:27] LABS: ABSOLUTE EOSINOPHILS 0.9 thou/uL (0.0-0.7); ABSOLUTE LYMPHOCYTES 0.8 thou/uL (0.8-5.3); ABSOLUTE MONOCYTES 0.7 thou/uL (0.0-1.2); ABSOLUTE NEUTROPHILS 11.8 thou/uL (1.6-8.1); BASOPHILS 0.3 %; EOSINOPHILS 6.4 %; HEMATOCRIT 24.2 % (42.0-52.0); HEMOGLOBIN 7.8 gm/dL (14.0-18.0); LYMPHOCYTES 5.7 %; MCH 27.6 pg (26.0-34.0); MCHC 32.4 g/dL (28.0-37.0); MCV 85.2 fL (80.0-100.0); MONOCYTES 4.9 %; MPV 7.7 fl. (7.2-11.1); PLATELET COUNT* 439 thou/uL (150-400); POLYS 82.7 %; RDW-CV 16.8 % (10.5-14.5); WBC 14.3 thou/uL (4.0-11.0)
[2021-04-08 13:36] LABS: CREATININE 1.6 mg/dL (0.6-1.3); MAGNESIUM 1.9 mg/dL (1.8-2.4); POTASSIUM 3.6 mmol/L (3.5-5.1)
--- NOTE | 2021-04-08 16:38 | NUR ---
Pt remains in the ICU. Original discharge plan was to SNF at [facility] but pt had a change in status. In team meeting today doctor was recommending hospice care, however and son so far have not been open to this. Pt remains a full code. Pt remains on a vent at this time. CM to continue to follow for discharge planning.
[2021-04-09] VITALS (19 sets, daily range): BP systolic 65–172; BP diastolic 49–69
[2021-04-09 08:14] LABS: ABSOLUTE EOSINOPHILS 0.7 thou/uL (0.0-0.7); ABSOLUTE LYMPHOCYTES 1.1 thou/uL (0.8-5.3); ABSOLUTE MONOCYTES 0.6 thou/uL (0.0-1.2); ABSOLUTE NEUTROPHILS 7.6 thou/uL (1.6-8.1); BASOPHILS 0.2 %; HEMATOCRIT 22.2 % (42.0-52.0); HEMOGLOBIN 7.2 gm/dL (14.0-18.0); LYMPHOCYTES 10.5 %; MCH 27.7 pg (26.0-34.0); MCHC 32.3 g/dL (28.0-37.0); MCV 85.9 fL (80.0-100.0); MPV 8.2 fl. (7.2-11.1); NUCLEATED RBCS 0 /100WBC; POLYS 76.3 %; RBC 2.59 mil/uL (4.50-6.00); RDW-CV 16.3 % (10.5-14.5)
[2021-04-09 08:25] LABS: CALCIUM 7.6 mg/dL (8.5-10.1); CREATININE 1.3 mg/dL (0.6-1.3); PHOSPHORUS* 2.7 mg/dL (2.5-4.9); PLATELET COUNT* 332 thou/uL (150-400); POTASSIUM 3.2 mmol/L (3.5-5.1)
[2021-04-09 08:28] LABS: ALBUMIN 1.9 g/dL (3.4-5.0); CALCIUM 7.7 mg/dL (8.5-10.1); CREATININE 1.3 mg/dL (0.6-1.3); MAGNESIUM 2.1 mg/dL (1.8-2.4); POTASSIUM 3.2 mmol/L (3.5-5.1); TOTAL BILIRUBIN 0.5 mg/dL (<0.1-1.0); TOTAL PROTEIN 4.9 g/dL (6.4-8.2)
[2021-04-09 09:19] LABS: BE 0.7 mmol/L (-2 to +3); PCO2 31.7 mmHg (35.0-45.0); PO2 98.6 mmHg (75.0-100.0); pH 7.491 (7.340-7.450)
--- NOTE | 2021-04-09 13:48 | NUR ---
WOUND CARE: PATIENT SEEN FOR SACRAL WOUND, AT BEDSIDE. REPORTS AREA NEW. SECRAL AREA NOTED TO BE RED WITH OPEN AREA NOTED MEASURING 2.5 X 1 X 0.1 100% PINK GRANULATION TISSUE. AQUACEL AG APPLIED AND SECURED WITH BOARDER FOAM. PATIENT IS INTUBATED AND NOT TEACHABLE AT THIS TIME. REQUEST FEET TO BE COVERED SHE THINKS PATIENT LOOKS COLD AND THIS WAS DONE. DENIES OTHER QUESTIONS OR NEEDS AT THIS TIME.
--- NOTE | 2021-04-09 16:49 | NUR ---
Pt continues to be in the ICU. Had a surgical procedure today. Continues on the vent with a BRYCE drain. Doctors are recommending hospice but family continues to be resistive to this at this time. Pt has now been placed on TPN - if this continues - may be a LTACH candidate. CM following for discharge planning.
--- NOTE | 2021-04-09 18:46 | NUR ---
PT ABLE TO BE WEANED OFF LEVO TODAY. NO WEANING TRIAL DONE FROM VENT PT WAS TO GO TO THE OR TODAY. NO NEW SEDATIVED STARTED AND PT IS MORE RESPONSIVE TODAY. RECTAL TUBE PLACED FOR LIQUID DIARRHEA THIS MORNING MANN MURRAY, AND LUCY ROUNDED. PT GIVEN POTASSIUM REPLACEMENT. HE LEFT THE FLOOR AT 1730 FOR OR, STILL PENDING RETURN.
--- NOTE | 2021-04-09 19:05 | EKG ---
[place] [address] ELECTROCARDIOGRAM REPORT Name: BURT EDDY Room: [address] ADM IN M.R.#: [id number] Admission: 03/18/21 Attend Phys: Kimberly Cui Discharge: Date of : [birth year] Date of Service: 04/08/21 1635 Report #: [id number] THIS REPORT FOR: //name// [facility] Test Date: 2021-04-08 Test Time: 16:35:59 Pat Name: BURT NUNU Department: Room: [address] Gender: M Fundraising Consultant: NYA : 1935 Requested By: Ty Martinez Order Number: [id number] Jess MD: Ty Martinez Measurements Intervals [place] Rate: 105 P: 225 VT: 71 QRS: 54 QRSD: 73 T: -21 QT: 325 QTc: 430 Interpretive Statements atrial tachycardia 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
[2021-04-10] VITALS (48 sets, daily range): BP systolic 72–152; BP diastolic 40–91
[2021-04-10 07:17] LABS: ABSOLUTE LYMPHOCYTES 1.6 thou/uL (0.8-5.3); ABSOLUTE MONOCYTES 0.8 thou/uL (0.0-1.2); ABSOLUTE NEUTROPHILS 11.3 thou/uL (1.6-8.1); BASOPHILS 0.3 %; EOSINOPHILS 6.5 %; HEMATOCRIT 25.4 % (42.0-52.0); HEMOGLOBIN 8.1 gm/dL (14.0-18.0); LYMPHOCYTES 10.8 %; MCH 27.3 pg (26.0-34.0); MCHC 31.8 g/dL (28.0-37.0); MCV 85.7 fL (80.0-100.0); MONOCYTES 5.7 %; MPV 8.1 fl. (7.2-11.1); NUCLEATED RBCS 0 /100WBC; POLYS 76.7 %; RBC 2.96 mil/uL (4.50-6.00); RDW-CV 16.9 % (10.5-14.5); WBC 14.7 thou/uL (4.0-11.0)
[2021-04-10 07:18] LABS: PLATELET COUNT* 478 thou/uL (150-400)
[2021-04-10 07:59] LABS: ALBUMIN 2.1 g/dL (3.4-5.0); CALCIUM 8.4 mg/dL (8.5-10.1); CREATININE 1.2 mg/dL (0.6-1.3); MAGNESIUM 2.2 mg/dL (1.8-2.4); PHOSPHORUS* 2.5 mg/dL (2.5-4.9); TOTAL BILIRUBIN 0.4 mg/dL (<0.1-1.0); TOTAL PROTEIN 5.5 g/dL (6.4-8.2)
[2021-04-10 08:02] LABS: POTASSIUM 4.2 mmol/L (3.5-5.1)
[2021-04-10 08:21] LABS: BE 0.5 mmol/L (-2 to +3); PCO2 31.2 mmHg (35.0-45.0); PO2 107.8 mmHg (75.0-100.0); pH 7.494 (7.340-7.450)
[2021-04-10 18:35] LABS: CREATININE 1.2 mg/dL (0.6-1.3); MAGNESIUM 2.1 mg/dL (1.8-2.4); POTASSIUM 3.8 mmol/L (3.5-5.1)
--- NOTE | 2021-04-10 18:59 | NUR ---
PER DR. HYLTON, PT TO BE LEFT ALONE TODAY TO TRY TO WEAN THE PRESSORS DOWN AND WILL BE POSSIBLY EXTUBATED TOMORROW. LEVOPHED DOWN TO 0.12 FROM 0.2 AT THE BEGINNING OF THE SHIFT. PT RECIEVED ALBUMIN AND LASIX TODAY.
[2021-04-11] VITALS (32 sets, daily range): BP systolic 68–162; BP diastolic 30–91
[2021-04-11 04:50] LABS: HEMATOCRIT 24.1 % (42.0-52.0); HEMOGLOBIN 7.8 gm/dL (14.0-18.0); MCH 27.4 pg (26.0-34.0); MCHC 32.4 g/dL (28.0-37.0); MCV 84.5 fL (80.0-100.0); MPV 7.8 fl. (7.2-11.1); NUCLEATED RBCS 0 /100WBC; RBC 2.85 mil/uL (4.50-6.00); RDW-CV 16.7 % (10.5-14.5); WBC 12.7 thou/uL (4.0-11.0)
[2021-04-11 05:15] LABS: PLATELET COUNT* 343 thou/uL (150-400)
[2021-04-11 05:32] LABS: ALBUMIN 2.7 g/dL (3.4-5.0); CALCIUM 8.5 mg/dL (8.5-10.1); CREATININE 1.2 mg/dL (0.6-1.3); MAGNESIUM 2.2 mg/dL (1.8-2.4); POTASSIUM 3.6 mmol/L (3.5-5.1); TOTAL BILIRUBIN 0.4 mg/dL (<0.1-1.0); TOTAL PROTEIN 5.8 g/dL (6.4-8.2)
[2021-04-11 07:12] LABS: ABSOLUTE EOSINOPHILS 1.1 thou/uL (0.0-0.7); ABSOLUTE LYMPHOCYTES 1.3 thou/uL (0.8-5.3); ABSOLUTE MONOCYTES 0.5 thou/uL (0.0-1.2); ABSOLUTE NEUTROPHILS 9.8 thou/uL (1.6-8.1)
[2021-04-11 07:15] LABS: PLATELET ESTIMATE ADEQUATE
--- NOTE | 2021-04-11 20:23 | NUR ---
BREATHING TRIAL DONE. FAILED. PT REMAINS ON LEVOPHED. GIVEN ALBUMIN AND LASIX TODAY. PT PLUGGED TWICE AND NEEDED TO BE BAGGED. SPUTUM CULTURE ORDERED.
[2021-04-12] VITALS (28 sets, daily range): BP systolic 85–126; BP diastolic 34–55
[2021-04-12 05:00] LABS: HEMATOCRIT 23.1 % (42.0-52.0); HEMOGLOBIN 7.4 gm/dL (14.0-18.0); MCH 27.2 pg (26.0-34.0); MCHC 31.9 g/dL (28.0-37.0); MCV 85.2 fL (80.0-100.0); MPV 8.3 fl. (7.2-11.1); RBC 2.71 mil/uL (4.50-6.00); RDW-CV 16.3 % (10.5-14.5); WBC 12.1 thou/uL (4.0-11.0)
[2021-04-12 05:03] LABS: CALCIUM 8.2 mg/dL (8.5-10.1); CREATININE 1.3 mg/dL (0.6-1.3); POTASSIUM 3.9 mmol/L (3.5-5.1)
--- NOTE | 2021-04-12 06:39 | NUR ---
APPROX 2300 ON 04/11/21 PT SELF EXTUBATED. PULM WAS CONTACTED AND NEW ORDERS RECIEVED. GI WAS CONTACTED X2 WITH NO ANSWER. TALK TO SURGERY THIS AM AND NO NEED FOR REPLACEMENT OF NG/OG TUBE.
--- NOTE | 2021-04-12 14:39 | NUR ---
Pt continues to be in the ICU. Pt was to have been extubated today but he did it himself yesterday evening. He is currently on room air. Plan is to wean pt off precedex and TPN tommorow. D/C Plan before patient transferred to ICU was SNF ([facility]) but patient has been unable to participate in therapy. If no improvement will have to consider Assisted Care/Hospice. If patient is able to participate in therapy - then may consider resuming therapy for SNF. CM to follow for discharge planning.
[2021-04-12 18:08] LABS: CALCIUM 8.2 mg/dL (8.5-10.1); CREATININE 1.3 mg/dL (0.6-1.3); MAGNESIUM 2.2 mg/dL (1.8-2.4); POTASSIUM 3.7 mmol/L (3.5-5.1)
--- NOTE | 2021-04-12 19:26 | NUR ---
PT WAS STARTED ON TF TODAY. HE WAS WEANED OFF HIS LEVO IN THE EARLY AFTERNOON, BUT IN THE EVENING HE STARTED TO AND REQUIRED AN INCREASE IN PRECEDEX. WITH THIS INCREASE, LEVO WAS RESTARTED. HE WAS ALSO PLACED IN RESTRAINTS AT 1800 BECAUSE HE WAS PICKING AT HIS CATHETER AND ART LINE. PT REMAINS STABLE ON RA.
[2021-04-13] VITALS (59 sets, daily range): BP systolic 85–154; BP diastolic 32–76
[2021-04-13 05:00] LABS: ABSOLUTE EOSINOPHILS 0.8 thou/uL (0.0-0.7); ABSOLUTE LYMPHOCYTES 1.7 thou/uL (0.8-5.3); ABSOLUTE MONOCYTES 0.8 thou/uL (0.0-1.2); ABSOLUTE NEUTROPHILS 8.2 thou/uL (1.6-8.1); BASOPHILS 0.3 %; EOSINOPHILS 6.7 %; HEMATOCRIT 21.8 % (42.0-52.0); LYMPHOCYTES 14.7 %; MCH 27.4 pg (26.0-34.0); MCHC 32.1 g/dL (28.0-37.0); MCV 85.3 fL (80.0-100.0); MONOCYTES 7.1 %; MPV 8.3 fl. (7.2-11.1); NUCLEATED RBCS 0 /100WBC; PLATELET COUNT* 261 thou/uL (150-400); POLYS 71.2 %; RBC 2.55 mil/uL (4.50-6.00); RDW-CV 16.8 % (10.5-14.5); WBC 11.6 thou/uL (4.0-11.0)
[2021-04-13 05:15] LABS: CALCIUM 8.2 mg/dL (8.5-10.1); CREATININE 1.2 mg/dL (0.6-1.3); PHOSPHORUS* 3.7 mg/dL (2.5-4.9); POTASSIUM 3.6 mmol/L (3.5-5.1)
[2021-04-13 05:18] LABS: ALBUMIN 2.1 g/dL (3.4-5.0); CALCIUM 8.2 mg/dL (8.5-10.1); CREATININE 1.2 mg/dL (0.6-1.3); MAGNESIUM 2.2 mg/dL (1.8-2.4); POTASSIUM 3.7 mmol/L (3.5-5.1); TOTAL BILIRUBIN 0.3 mg/dL (<0.1-1.0); TOTAL PROTEIN 5.4 g/dL (6.4-8.2)
[2021-04-13 12:20] LABS: BE -2.3 mmol/L (-2 to +3); PCO2 28.7 mmHg (35.0-45.0); PO2 67.5 mmHg (75.0-100.0); pH 7.477 (7.340-7.450)
--- NOTE | 2021-04-13 14:59 | NUR ---
Pt remains in the ICU. Pt originally was to discharge to [facility] ([facility]) before having a change in status. Since pt is making slow improvements - decided to go ahead and fax updates to [facility] at: [phone]. *Pt is off the vent and is now on room air *Pt remains NPO due to severe dysphagia and is receiving tube feeding through BRYCE tube. *Pt has a rectal tube *Pt was on IV Meropenem but they have stopped this and are now monitoring him off antibiotics. CM to continue to follow for discharge planning.
--- NOTE | 2021-04-13 15:14 | NUR ---
WOUND NURSE: PATIENT SEEN TO ADDRESS SACRAL STAGE 2 PRESSURE INJURY. PRESENTS A RUPTURED BULLA WITH PARTIAL THICKNESS TISSUE LOSS. PINKISH RED, NONGRANULATING TISSUE IN THE WOUND BED. PERIWOUND TISSUE WITH MAROON NONBLANCHEABLE DISCOLORATION INDICATIVE OF SUSPECTED DEEP TISSUE INJURY. SACRAL PRESSURE INJURY MEASURES 4.0 X 1.5 X 0.1 CM. SCANT SANGUINOUS DRAINAGE NOTED FROM WOUND. CLEANSED WITH SOAP AND WATER, RINSED, THAN PATTED DRY. APPLIED SKIN PREP TO PERIWOUND TISSUE. APPLIED AQUACEL AG UNDER BORDERED FOAM DRESSING. THIS IS CHANGED 3X/WEEK AND PRN. PATIENT IS ON OLD ICU LOW AIRLOSS MATTRESS -- RECOMMEND PATIENT BE PLACED ON NEWER ICU MATTRESS WHEN/IF STABLE ENOUGH TO BE SAFELY TRANSFERED. PATIENT IS NOT TEACHEABLE.
[2021-04-13 21:18] LABS: CALCIUM 8.3 mg/dL (8.5-10.1); CREATININE 1.3 mg/dL (0.6-1.3); MAGNESIUM 2.3 mg/dL (1.8-2.4); POTASSIUM 3.9 mmol/L (3.5-5.1)
[2021-04-14] VITALS (26 sets, daily range): BP systolic 69–153; BP diastolic 45–75
[2021-04-14 04:51] LABS: HEMATOCRIT 22.9 % (42.0-52.0); HEMOGLOBIN 7.4 gm/dL (14.0-18.0); MCH 27.5 pg (26.0-34.0); MCHC 32.2 g/dL (28.0-37.0); MCV 85.4 fL (80.0-100.0); MPV 8.9 fl. (7.2-11.1); NUCLEATED RBCS 0 /100WBC; PLATELET COUNT* 272 thou/uL (150-400); RBC 2.69 mil/uL (4.50-6.00); RDW-CV 17.1 % (10.5-14.5); WBC 13.6 thou/uL (4.0-11.0)
[2021-04-14 05:11] LABS: ALBUMIN 2.6 g/dL (3.4-5.0); CALCIUM 8.4 mg/dL (8.5-10.1); CREATININE 1.2 mg/dL (0.6-1.3); MAGNESIUM 2.4 mg/dL (1.8-2.4); POTASSIUM 4.1 mmol/L (3.5-5.1); TOTAL BILIRUBIN 0.4 mg/dL (<0.1-1.0); TOTAL PROTEIN 6.3 g/dL (6.4-8.2)
[2021-04-14 05:20] LABS: PHOSPHORUS* 4.1 mg/dL (2.5-4.9)
[2021-04-14 06:51] LABS: ABSOLUTE EOSINOPHILS 0.8 thou/uL (0.0-0.7); ABSOLUTE LYMPHOCYTES 1.6 thou/uL (0.8-5.3); ABSOLUTE MONOCYTES 0.5 thou/uL (0.0-1.2); ABSOLUTE NEUTROPHILS 10.6 thou/uL (1.6-8.1); METAMYELOCYTES 2 %
[2021-04-14 06:52] LABS: ANISOCYTOSIS 1+; HYPOCHROMASIA 1+; PLATELET ESTIMATE ADEQUATE
--- NOTE | 2021-04-14 10:18 | NUR ---
ASSESS PT WITH DR. KATE AND HE UPDATED SPOUSE AT BEDSIDE OF PT'S CONDITION. PT'S RESPIRATORY RATE AND WORK OF BREATHING INCREASING. PT ORIENTED TO SELF ONLY. WILL CONTINUE TO ASSESS.
[2021-04-14 11:59] LABS: BE -2.3 mmol/L (-2 to +3); PO2 VENOUS 65.9 mmHg (35.0-45.0)
--- NOTE | 2021-04-14 11:59 | NUR ---
DR. BONNER TALKED TO PT'S FAMILY AND PT WILL BE REINTUBATED.
--- NOTE | 2021-04-14 12:59 | NUR ---
Pt is being placed back on the vent. in the room and very tearful, provided support to , and offered to call son but she had already did this. Original discharge plan was [facility]. Sent updates yesterday. CM to continue to follow for discharge planning.
[2021-04-14 16:18] LABS: BE 0.4 mmol/L (-2 to +3); PCO2 34.4 mmHg (35.0-45.0); pH 7.462 (7.340-7.450)
[2021-04-14 16:25] LABS: PO2 130.8 mmHg (75.0-100.0)
[2021-04-15] VITALS (99 sets, daily range): BP systolic 79–134; BP diastolic 37–82
[2021-04-15 05:04] LABS: ABSOLUTE BASOPHILS 0.1 thou/uL (0.0-0.2); ABSOLUTE EOSINOPHILS 1.3 thou/uL (0.0-0.7); ABSOLUTE LYMPHOCYTES 1.8 thou/uL (0.8-5.3); ABSOLUTE NEUTROPHILS 10.1 thou/uL (1.6-8.1); BASOPHILS 0.4 %; EOSINOPHILS 9.3 %; HEMATOCRIT 23.5 % (42.0-52.0); HEMOGLOBIN 7.4 gm/dL (14.0-18.0); LYMPHOCYTES 12.7 %; MCH 27.2 pg (26.0-34.0); MCHC 31.5 g/dL (28.0-37.0); MCV 86.2 fL (80.0-100.0); MONOCYTES 6.7 %; MPV 8.6 fl. (7.2-11.1); NUCLEATED RBCS 0 /100WBC; PLATELET COUNT* 342 thou/uL (150-400); POLYS 70.9 %; RBC 2.72 mil/uL (4.50-6.00); RDW-CV 17.3 % (10.5-14.5); WBC 14.2 thou/uL (4.0-11.0)
[2021-04-15 05:18] LABS: ALBUMIN 2.2 g/dL (3.4-5.0); CALCIUM 7.9 mg/dL (8.5-10.1); CREATININE 1.2 mg/dL (0.6-1.3); MAGNESIUM 2.2 mg/dL (1.8-2.4); POTASSIUM 3.9 mmol/L (3.5-5.1); TOTAL BILIRUBIN 0.3 mg/dL (<0.1-1.0)
[2021-04-15 08:40] LABS: BE -0.1 mmol/L (-2 to +3); PCO2 37.8 mmHg (35.0-45.0); PO2 90.6 mmHg (75.0-100.0); pH 7.424 (7.340-7.450)
[2021-04-15 14:14] LABS: ABSOLUTE BASOPHILS 0.1 thou/uL (0.0-0.2); ABSOLUTE EOSINOPHILS 0.9 thou/uL (0.0-0.7); ABSOLUTE LYMPHOCYTES 1.7 thou/uL (0.8-5.3); ABSOLUTE MONOCYTES 0.9 thou/uL (0.0-1.2); ABSOLUTE NEUTROPHILS 10.5 thou/uL (1.6-8.1); BASOPHILS 0.4 %; EOSINOPHILS 6.7 %; HEMATOCRIT 23.6 % (42.0-52.0); HEMOGLOBIN 7.5 gm/dL (14.0-18.0); LYMPHOCYTES 11.8 %; MCHC 31.6 g/dL (28.0-37.0); MCV 85.4 fL (80.0-100.0); MONOCYTES 6.5 %; MPV 8.1 fl. (7.2-11.1); NUCLEATED RBCS 0 /100WBC; PLATELET COUNT* 309 thou/uL (150-400); POLYS 74.6 %; RBC 2.77 mil/uL (4.50-6.00); RDW-CV 17.2 % (10.5-14.5); WBC 14.1 thou/uL (4.0-11.0)
[2021-04-15 17:28] LABS: CREATININE 1.3 mg/dL (0.6-1.3); MAGNESIUM 2.3 mg/dL (1.8-2.4); POTASSIUM 3.5 mmol/L (3.5-5.1)
[2021-04-16] VITALS (97 sets, daily range): BP systolic 74–142; BP diastolic 41–73
--- NOTE | 2021-04-16 01:08 | NUR ---
HAVE DISCUSSED WITH RT FOR COORDINATING CT TRANSPORT. AT THIS TIME, RT IS UNABLE TO, BUT WILL CALL WHEN SHE HAS AN OPPORTUNITY.
[2021-04-16 04:07] LABS: ABSOLUTE BASOPHILS 0.1 thou/uL (0.0-0.2); ABSOLUTE LYMPHOCYTES 1.3 thou/uL (0.8-5.3); ABSOLUTE MONOCYTES 0.9 thou/uL (0.0-1.2); ABSOLUTE NEUTROPHILS 11.3 thou/uL (1.6-8.1); BASOPHILS 0.5 %; HEMOGLOBIN 7.3 gm/dL (14.0-18.0); LYMPHOCYTES 9.1 %; MCH 27.2 pg (26.0-34.0); MCHC 31.6 g/dL (28.0-37.0); MONOCYTES 6.3 %; MPV 8.4 fl. (7.2-11.1); NUCLEATED RBCS 0 /100WBC; PLATELET COUNT* 283 thou/uL (150-400); POLYS 77.1 %; RBC 2.68 mil/uL (4.50-6.00); RDW-CV 17.2 % (10.5-14.5); WBC 14.7 thou/uL (4.0-11.0)
--- NOTE | 2021-04-16 12:52 | NUR ---
Met with to provide emotional support. Discussion of Right Thoracentisis today in order to begin weaning trials off vent. is to make final decision in regards to care on Monday04/19/21. However we discussed options today and she does appear to be leaning towards Hospice. 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 does report once he is weaned off ventilator she has decided she will not place him back on it. Discussed benefits of hospice and discussed nursing home care with hospice vs what pt would need if discharged home with hospice. does not feel pt can tolerate another surgical procedure. CM to continue to follow for discharge planning.
[2021-04-16 13:07] LABS: ABSOLUTE BASOPHILS 0.1 thou/uL (0.0-0.2); ABSOLUTE EOSINOPHILS 1.1 thou/uL (0.0-0.7); ABSOLUTE LYMPHOCYTES 1.4 thou/uL (0.8-5.3); ABSOLUTE MONOCYTES 0.8 thou/uL (0.0-1.2); ABSOLUTE NEUTROPHILS 10.3 thou/uL (1.6-8.1); BASOPHILS 0.7 %; EOSINOPHILS 8.4 %; HEMATOCRIT 23.7 % (42.0-52.0); HEMOGLOBIN 7.4 gm/dL (14.0-18.0); LYMPHOCYTES 9.9 %; MCHC 31.3 g/dL (28.0-37.0); MCV 86.4 fL (80.0-100.0); MONOCYTES 5.5 %; MPV 8.9 fl. (7.2-11.1); NUCLEATED RBCS 0 /100WBC; PLATELET COUNT* 290 thou/uL (150-400); POLYS 75.5 %; RBC 2.75 mil/uL (4.50-6.00); RDW-CV 17.5 % (10.5-14.5); WBC 13.7 thou/uL (4.0-11.0)
[2021-04-16 13:59] LABS: ALBUMIN 2.5 g/dL (3.4-5.0); CALCIUM 8.7 mg/dL (8.5-10.1); CREATININE 1.3 mg/dL (0.6-1.3); MAGNESIUM 2.4 mg/dL (1.8-2.4); POTASSIUM 3.5 mmol/L (3.5-5.1); TOTAL BILIRUBIN 0.4 mg/dL (<0.1-1.0); TOTAL PROTEIN 6.3 g/dL (6.4-8.2)
--- NOTE | 2021-04-16 15:45 | NUR ---
PT GOT A R. SIDED THORACENTESIS TODAY- DRAINED OUT 550ML. R. SIDE PLUREX/ PIGTAIL WAS PLACED AND PUT TO -[address] HYLTON. SEROUS DRAINAGE OUT.
[2021-04-16 16:53] LABS: CLARITY HAZY; SOURCE THORACENTESIS; TOTAL VOLUME 500 ml
[2021-04-16 18:03] LABS: BF EOSINOPHILS 3 %; BF LYMPHOCYTES 79 %; BF MONOCYTES 3 %; BF POLYS 15 %; BF TISSUE 3 /100 WBC
[2021-04-17] VITALS (53 sets, daily range): BP systolic 78–128; BP diastolic 45–72
[2021-04-17 05:01] LABS: BE -3.9 mmol/L (-2 to +3); PCO2 32.9 mmHg (35.0-45.0); pH 7.408 (7.340-7.450)
[2021-04-17 05:32] LABS: ABSOLUTE EOSINOPHILS 0.9 thou/uL (0.0-0.7); ABSOLUTE LYMPHOCYTES 1.6 thou/uL (0.8-5.3); ABSOLUTE MONOCYTES 0.7 thou/uL (0.0-1.2); ABSOLUTE NEUTROPHILS 9.3 thou/uL (1.6-8.1); BASOPHILS 0.4 %; EOSINOPHILS 7.4 %; HEMATOCRIT 23.3 % (42.0-52.0); HEMOGLOBIN 7.3 gm/dL (14.0-18.0); LYMPHOCYTES 12.4 %; MCHC 31.3 g/dL (28.0-37.0); MCV 86.4 fL (80.0-100.0); MONOCYTES 5.6 %; MPV 9.4 fl. (7.2-11.1); NUCLEATED RBCS 0 /100WBC; PLATELET COUNT* 252 thou/uL (150-400); POLYS 74.2 %; RBC 2.69 mil/uL (4.50-6.00); RDW-CV 17.1 % (10.5-14.5); WBC 12.6 thou/uL (4.0-11.0)
[2021-04-17 05:39] LABS: CALCIUM 8.2 mg/dL (8.5-10.1); CREATININE 1.2 mg/dL (0.6-1.3); POTASSIUM 3.7 mmol/L (3.5-5.1)
[2021-04-17 05:40] LABS: ALBUMIN 2.5 g/dL (3.4-5.0); CALCIUM 8.1 mg/dL (8.5-10.1); CREATININE 1.2 mg/dL (0.6-1.3); MAGNESIUM 2.3 mg/dL (1.8-2.4); POTASSIUM 3.7 mmol/L (3.5-5.1); TOTAL BILIRUBIN 0.3 mg/dL (<0.1-1.0); TOTAL PROTEIN 6.1 g/dL (6.4-8.2)
[2021-04-18] VITALS (58 sets, daily range): BP systolic 62–139; BP diastolic 34–81
[2021-04-18 09:40] LABS: ABSOLUTE EOSINOPHILS 0.7 thou/uL (0.0-0.7); ABSOLUTE LYMPHOCYTES 1.1 thou/uL (0.8-5.3); ABSOLUTE MONOCYTES 0.6 thou/uL (0.0-1.2); ABSOLUTE NEUTROPHILS 5.7 thou/uL (1.6-8.1); BASOPHILS 0.3 %; EOSINOPHILS 8.8 %; HEMATOCRIT 22.8 % (42.0-52.0); HEMOGLOBIN 7.3 gm/dL (14.0-18.0); LYMPHOCYTES 13.5 %; MCH 27.5 pg (26.0-34.0); MCHC 31.8 g/dL (28.0-37.0); MCV 86.6 fL (80.0-100.0); MONOCYTES 7.3 %; MPV 8.4 fl. (7.2-11.1); NUCLEATED RBCS 0 /100WBC; PLATELET COUNT* 266 thou/uL (150-400); POLYS 70.1 %; RBC 2.64 mil/uL (4.50-6.00); RDW-CV 17.2 % (10.5-14.5); WBC 8.1 thou/uL (4.0-11.0)
[2021-04-18 09:47] LABS: BE -4.2 mmol/L (-2 to +3); PCO2 28.1 mmHg (35.0-45.0)
[2021-04-18 10:07] LABS: CALCIUM 8.4 mg/dL (8.5-10.1); CREATININE 1.2 mg/dL (0.6-1.3); POTASSIUM 3.7 mmol/L (3.5-5.1)
--- NOTE | 2021-04-18 18:05 | NUR ---
0700 REPORT RECIEVED. PT AWAKE AND EYES OPEN GESTURIGN TO TUBE. PT TRYING TO COMMUNICATE. WHEN ASKS WHAT HE IS WANTING HE TRIE SOT REACH FOR THE TUBE. ETT 7.5 INTACT 22 @ TEETH. AND CONNECTED TO VENTILATOR WITH SETTING OF AC 16, TV 460, FIO2 30%,A ND PEEP 5. TUBE FEEDING JEVITY INTACT AND INFUSING AT 50CC/HR VIA PUMP, AND CONNECTED TO ROBINSON J PORT. g PORT CONNECTED TO LIS. PEDROZA ITNACTA ND PATENT DRAIING YUELLOW URINE WITH SEDIMENT TO BEDSIDE BAG. CT INTACT WITH NO EVIDENCE OF LEAK AND DRAING SEROUS COLORED FLUID TO ATRIUM. FECAL MANAGEMENT SYSTEM INTACT AND DRAING BROWN SECRETIONS. R BRYCE DRAIN INTACT AND DRAIING SEROUS SECRETIONS. DRAIN TO RLQ NO DRAINAGE NOTED. MONITORS INTAC. WILL CONTINUE TO MONITOR
[2021-04-19] VITALS (78 sets, daily range): BP systolic 63–142; BP diastolic 32–77
[2021-04-19 03:17] LABS: BE -2.9 mmol/L (-2 to +3); PCO2 31.6 mmHg (35.0-45.0); PO2 109.3 mmHg (75.0-100.0); pH 7.436 (7.340-7.450)
--- NOTE | 2021-04-19 04:48 | NUR ---
ASSUMED CARE AT 1915H, ON VENT AT 30% AND TOLERATED. ON PRECEDEX AT MAX DOSE. PT OBEYED COMMANDS. NO FEVER AND NO BLEEDING NOTED. NO TIDALING FROM CHEST TUBE. CONTINUE MONITORING AND TOWARDS GOALS.
[2021-04-19 05:14] LABS: ABSOLUTE BASOPHILS 0.1 thou/uL (0.0-0.2); ABSOLUTE EOSINOPHILS 0.7 thou/uL (0.0-0.7); ABSOLUTE LYMPHOCYTES 1.4 thou/uL (0.8-5.3); ABSOLUTE MONOCYTES 0.6 thou/uL (0.0-1.2); ABSOLUTE NEUTROPHILS 6.2 thou/uL (1.6-8.1); BASOPHILS 0.8 %; HEMATOCRIT 22.2 % (42.0-52.0); HEMOGLOBIN 7.1 gm/dL (14.0-18.0); MCH 27.1 pg (26.0-34.0); MCHC 31.9 g/dL (28.0-37.0); MCV 85.2 fL (80.0-100.0); MONOCYTES 6.2 %; MPV 8.8 fl. (7.2-11.1); NUCLEATED RBCS 0 /100WBC; PLATELET COUNT* 281 thou/uL (150-400); RDW-CV 17.1 % (10.5-14.5)
[2021-04-19 05:29] LABS: CALCIUM 8.2 mg/dL (8.5-10.1); CREATININE 1.3 mg/dL (0.6-1.3); POTASSIUM 3.4 mmol/L (3.5-5.1)
[2021-04-19 10:33] LABS: BE -1.5 mmol/L (-2 to +3); PCO2 33.6 mmHg (35.0-45.0); PO2 111.7 mmHg (75.0-100.0); pH 7.435 (7.340-7.450)
[2021-04-19 14:07] LABS: BODY FLUID PROTEIN 3.6 g/dL (())
--- NOTE | 2021-04-19 15:23 | NUR ---
PT EXTUBATED AT 1150 TO 4 L NC. PT AOX2 AND FOLLOWING COMMANDS POST EXTUBATION.
--- NOTE | 2021-04-19 15:38 | NUR ---
Pt continues to be in the ICU. Pt has improved and doctor's feel he can be extubated today. Prognosis still guarded secondary to pt's colon mass. Original discharge plan was [facility]. CM to continue to follow pt to see if he can tolerate therapy to discharge to SNF vs Hospice (home vs [facility]).
--- NOTE | 2021-04-19 16:06 | PATH ---
[address] [address] PATHOLOGY RPT PROCEDURE Name: NEO BRUMFIELD Room: [address] IN .R.#: [id number] Admission: 03/18/21 Date of : [birth year] Discharge: Report #: [id number] Path Case #: [id number] L[facility] Accession Number: [id number] . 01 Material submitted: . sigmoid colon - ULCERATED TUMOR DISTAL SIGMOID . 01 Clinical history: . COLONOSCOPY . 02 Diagnosis: Colonic mucosa (ulcerated tumor distal sigmoid colon biopsy): - Tubular adenoma with high-grade dysplasia. (SWK:pit; 04/15/2021) [facility] 04/15/2021 1106 Local . 02 Comment: Changes are worrisome for possible invasive carcinoma and adjacent mucosa. These results are telephoned to Dr. Maddie Gould on 04/15/2021. This case is seen in co-reviewed by Dr. Austin. (SWK:pit; 04/15/2021) . 02 Electronically signed: . Chico Lunsford MD, Pathologist NPI- [id number] . 01 Gross description: . The specimen is received in formalin, labeled "Neo Brumfield, ulcerated tumor distal sigmoid". Received are three segments of pale de paz tissue ranging in size from 0.1-0.5 cm in maximum dimensions. The specimen is submitted entirely in cassette A1. (CAA; 04/14/2021) QAC/QA 04/14/2021 1031 Local . 02 Pathologist provided ICD-10: D12.5 . 02 CPT . 260767 Specimen Comment: A courtesy copy of this report has been sent to [phone], [phone] Specimen Comment: 0015, Specimen Comment: Report sent to , DR CAVAZOS / DR DARNELL Specimen Comment: A duplicate report has been generated due to demographic updates. Performed at: [address] [facility] [address], [place] [id number] [place] [address] PATHOLOGY RPT PROCEDURE Name: NEO BRUMFIELD Room: [address] IN ..#: [id number] Admission: 03/18/21 Date of : [birth year] Discharge: Report #: [id number] Path Case #: [id number] MD Justin Bowman MD Phone: [phone] Performed at: [address] [id number] MD Chico Lunsford MD Phone: [phone]
[2021-04-20] VITALS (72 sets, daily range): BP systolic 81–151; BP diastolic 37–91
--- NOTE | 2021-04-20 08:55 | NUR ---
WOUND NURSE: PATIENT SEEN FOR FOLLOW UP ASSESSMENT PERTAINING TO SACRAL WOUND. PRESENTS WITH PARTIAL THICKNESS TISSUE LOSS AND PINK NONGRANULATING TISSUE IN THE WOUND BED. SCANT SEROUSANGUINOUS DRAINAGE. SLIGHT RUBOR TO PERIWOUND TISSUE. MEASURES 4.0 X 1.5 X 0.1 CM. CLEANSED WITH SOAP AND WATER, RINSED, THEN PATTED DRY. APPLIED SKIN PREP TO PERIWOUND. APPLIED AQUACEL AG UNDER EXUDERM (CUT TO FIT), THEN SECURED IN PLACE USING SURESITE TRANSPARENT DRESSING. PATIENT POSITIONED ONTO HIS RIGHT SIDE. THIS WAS TOLERATED WELL BY THE PATIENT.
[2021-04-21] VITALS (49 sets, daily range): BP systolic 97–133; BP diastolic 41–78
--- NOTE | 2021-04-21 15:07 | NUR ---
Pt is still in the ICU, but has now been extubated and they hope to transfer pt out of the ICU today. Met with to provide support - as they started weaning pt off the Precedex and he became agitated. Initial discharge plan was for pt to go to SN[facility] ([facility]). is hopefull pt can tolerate therapy and be able to go to SNF. is aware of Hospice at either home vs [facility] is an option but not ready to consider this just yet since he is making improvements, however pt does have a colon mass which they feel is cancerous. CM to continue to follow for discharge planning.
--- NOTE | 2021-04-21 16:06 | PATH ---
[address] [address] PATHOLOGY RPT PROCEDURE Name: BURT EDDY Room: [address] IN [facility]#: [id number] Admission: 03/18/21 Date of : [birth year] Discharge: Report #: [id number] Path Case #: [id number] Note L[facility] Accession Number: [id number] TESTS RESULT FLAG UNITS REF RANGE LAB Clinician Provided Cytology Information No. of containers..01 Other (Miscellaneous) Source: RT PLEURAL EFFUSION DIAGNOSIS: RT PLEURAL EFFUSION NEGATIVE FOR MALIGNANT CELLS. MESOTHELIAL CELLS AND INFLAMMATORY CELLS ARE PRESENT. SCANT CELLULARITY. Comment: There are rare mesothelial cells and inflammatory cells including lymphocytes are present.Recomment clinical correlation. Signed out by: 02 Kari Sauceda MD, Pathologist NPI- [id number] Performed by: Adrianne Luna Merchandise Team Manager ([facility]) Gross description: 30, YELLOW, CLEAR /LCS 04/19/2021 1855 Local FLAG LEGEND: L-Low Normal,H-High Normal,LL-Alert Low,HH-Alert High <-Panic Low,>-Panic High,A-Abnormal,AA-Critical Abnormal Performed at: [address] [place] [address] Justin Bowman MD, [address] [address] Kari Sauceda MD, Performed at: [address], [place], [place] [id number] MD Justin Bowman MD Phone: [phone]
[2021-04-22] VITALS (18 sets, daily range): BP systolic 96–129; BP diastolic 43–83
--- NOTE | 2021-04-22 04:03 | NUR ---
ASSUMED CARE AT 1905H, ON RA AND TOLERATED. PT WAS RESTLESS, PRECEDEX TITRATED UP. NO FEVER AND NO BLEEDING NOTED. STILL CONFUSED AND MUMBLING WORDS. CONTINUE MONITORING AND TOWARDS GOALS. PRECEDEX AT 1MIC. PT DID NOT SLEEP LAST NIGHT.
[2021-04-22 06:53] LABS: ABSOLUTE LYMPHOCYTES 1.6 thou/uL (0.8-5.3); ABSOLUTE MONOCYTES 0.3 thou/uL (0.0-1.2); ABSOLUTE NEUTROPHILS 8.7 thou/uL (1.6-8.1); BASOPHILS 0.4 %; HEMATOCRIT 23.9 % (42.0-52.0); HEMOGLOBIN 7.7 gm/dL (14.0-18.0); LYMPHOCYTES 15.1 %; MCV 84.2 fL (80.0-100.0); MONOCYTES 2.7 %; NUCLEATED RBCS 0 /100WBC; PLATELET COUNT* 285 thou/uL (150-400); POLYS 81.8 %; RBC 2.84 mil/uL (4.50-6.00); RDW-CV 17.5 % (10.5-14.5); WBC 10.7 thou/uL (4.0-11.0)
[2021-04-22 07:08] LABS: CALCIUM 8.3 mg/dL (8.5-10.1); CREATININE 1.3 mg/dL (0.6-1.3); MAGNESIUM 2.5 mg/dL (1.8-2.4); PHOSPHORUS* 3.1 mg/dL (2.5-4.9)
[2021-04-22 07:13] LABS: POTASSIUM 2.4 mmol/L (3.5-5.1)
[2021-04-23] VITALS (32 sets, daily range): BP systolic 71–157; BP diastolic 41–85
[2021-04-23 04:49] LABS: ABSOLUTE LYMPHOCYTES 1.1 thou/uL (0.8-5.3); ABSOLUTE MONOCYTES 0.2 thou/uL (0.0-1.2); ABSOLUTE NEUTROPHILS 7.3 thou/uL (1.6-8.1); BASOPHILS 0.2 %; HEMATOCRIT 21.5 % (42.0-52.0); LYMPHOCYTES 13.1 %; MCH 27.4 pg (26.0-34.0); MCHC 32.6 g/dL (28.0-37.0); MONOCYTES 2.6 %; MPV 8.3 fl. (7.2-11.1); NUCLEATED RBCS 0 /100WBC; PLATELET COUNT* 250 thou/uL (150-400); POLYS 84.1 %; RBC 2.56 mil/uL (4.50-6.00); RDW-CV 17.6 % (10.5-14.5); WBC 8.7 thou/uL (4.0-11.0)
[2021-04-23 05:00] LABS: INR 1.2
[2021-04-23 05:12] LABS: ALBUMIN 2.3 g/dL (3.4-5.0); CALCIUM 8.1 mg/dL (8.5-10.1); CREATININE 1.3 mg/dL (0.6-1.3); POTASSIUM 3.8 mmol/L (3.5-5.1); TOTAL BILIRUBIN 0.4 mg/dL (<0.1-1.0); TOTAL PROTEIN 5.6 g/dL (6.4-8.2)
--- NOTE | 2021-04-23 21:45 | NUR ---
I ASSUMED CARE OF THE PATIENT AT 0700. HE IS ALERT TO SELF AND MOVES AROUND IN THE BED. HOURLY ROUNDING IS COMPLETED AND PATIENT NEEDS ARE MET. BED IS IN THE LOW LOCKED POSITION AND CALL LIGHT IS IN REACH. BLOOD GLUCOSE IS MONITORED. FECAL MANAGMENT SYSTEM IS IN PLACE. PRECEDEX IS TITRATED AND CHARTED. HE WORKED WITH PT AND SAT AT THE EDGE OF THE BED. HE IS REPOSITIONED EVERY 2 HOURS. WILL CONTINUE TO MONITOR. BLOOD WAS GIVEN AND TUBE FEEDS ARE HAPPENING.
[2021-04-23 21:56] LABS: HEMATOCRIT 31.1 % (42.0-52.0)
[2021-04-23 22:00] LABS: HEMOGLOBIN 9.9 gm/dL (14.0-18.0)
[2021-04-24] VITALS (37 sets, daily range): BP systolic 99–160; BP diastolic 58–79
[2021-04-24 07:02] LABS: CALCIUM 8.3 mg/dL (8.5-10.1); CREATININE 1.1 mg/dL (0.6-1.3); HEMATOCRIT 40.7 % (42.0-52.0); MCH 32.4 pg (26.0-34.0); MCHC 33.4 g/dL (28.0-37.0); MPV 9.2 fl. (7.2-11.1); NUCLEATED RBCS 0 /100WBC; POTASSIUM 4.2 mmol/L (3.5-5.1); RBC 4.19 mil/uL (4.50-6.00); RDW-CV 15.6 % (10.5-14.5); WBC 6.4 thou/uL (4.0-11.0)
[2021-04-24 07:03] LABS: HEMOGLOBIN 13.6 gm/dL (14.0-18.0); MCV 97.1 fL (80.0-100.0); PLATELET COUNT* 126 thou/uL (150-400)
[2021-04-24 08:21] LABS: ABSOLUTE LYMPHOCYTES 0.2 thou/uL (0.8-5.3); ABSOLUTE MONOCYTES 0.1 thou/uL (0.0-1.2); ABSOLUTE NEUTROPHILS 6.1 thou/uL (1.6-8.1)
[2021-04-24 08:22] LABS: PLATELET ESTIMATE ADEQUATE
[2021-04-24 17:03] LABS: ABSOLUTE MONOCYTES 0.7 thou/uL (0.0-1.2); ABSOLUTE NEUTROPHILS 9.5 thou/uL (1.6-8.1); BASOPHILS 0.3 %; EOSINOPHILS 0.1 %; HEMATOCRIT 27.7 % (42.0-52.0); LYMPHOCYTES 16.2 %; MCH 28.2 pg (26.0-34.0); MCHC 31.9 g/dL (28.0-37.0); MONOCYTES 5.5 %; MPV 8.2 fl. (7.2-11.1); NUCLEATED RBCS 0 /100WBC; POLYS 77.9 %; RBC 3.13 mil/uL (4.50-6.00); RDW-CV 18.1 % (10.5-14.5); WBC 12.2 thou/uL (4.0-11.0)
[2021-04-24 17:04] LABS: HEMOGLOBIN 8.8 gm/dL (14.0-18.0); MCV 88.5 fL (80.0-100.0); PLATELET COUNT* 247 thou/uL (150-400)
[2021-04-24 17:12] LABS: CALCIUM 7.9 mg/dL (8.5-10.1); CREATININE 1.3 mg/dL (0.6-1.3); POTASSIUM 3.4 mmol/L (3.5-5.1)
[2021-04-25] VITALS (32 sets, daily range): BP systolic 129–158; BP diastolic 61–131
[2021-04-25 04:38] LABS: ABSOLUTE LYMPHOCYTES 0.8 thou/uL (0.8-5.3); ABSOLUTE MONOCYTES 0.3 thou/uL (0.0-1.2); ABSOLUTE NEUTROPHILS 7.2 thou/uL (1.6-8.1); BASOPHILS 0.6 %; EOSINOPHILS 0.1 %; HEMATOCRIT 28.6 % (42.0-52.0); HEMOGLOBIN 9.4 gm/dL (14.0-18.0); LYMPHOCYTES 9.7 %; MCH 28.5 pg (26.0-34.0); MCHC 32.9 g/dL (28.0-37.0); MCV 86.5 fL (80.0-100.0); MONOCYTES 3.2 %; MPV 8.6 fl. (7.2-11.1); NUCLEATED RBCS 0 /100WBC; PLATELET COUNT* 230 thou/uL (150-400); POLYS 86.4 %; RBC 3.31 mil/uL (4.50-6.00); RDW-CV 18.1 % (10.5-14.5); WBC 8.3 thou/uL (4.0-11.0)
[2021-04-25 04:48] LABS: CALCIUM 7.9 mg/dL (8.5-10.1); CREATININE 1.1 mg/dL (0.6-1.3); POTASSIUM 3.6 mmol/L (3.5-5.1)
--- NOTE | 2021-04-25 19:43 | NUR ---
PT HAS HAD A GOOD SHIFT. NO ACUTE DISTRESS NOTED. PT HAS SLEPT MOST OF SHIFT BUTIS EASILY AROUSABLE AND RESPONDS TO COMMANDS. PEDROZA INTACT AND PATENT DRAINING KINDRA URINE TO BEDSIDE BAG. FECAL MANAGEMENT SYSTEM INTACT AND DRAIING BROWN STOOL. CHEST TUBE INTACT. BRYCE DRAIN INTACT WILL CONTINUE TO MONITOR
[2021-04-26] VITALS (48 sets, daily range): BP systolic 125–175; BP diastolic 60–103
--- NOTE | 2021-04-26 12:24 | NUR ---
Met with today to discuss discharge planning. Pt continues to be in the ICU. He is extubated, and notes indicate removal of BRYCE drain. continues to display limited insight. She is not interested in discussing Hospice - as she wants to give patient a chance to recover. won't entertain any discussion of pt not getting better and appears only willing to discuss Hospice if pt is actively dying. She continues to hope pt will improve and be able to go to SNF - [facility]. At this time wants all agressive treatment. Had a long discussion that pt will only qualify for SNF if he is able to participate in therapy and demonstrate progress , but ultimately it would be up to patient's insurance to approve SNF. Attempted to have the discussion that it would be best to have a Plan B in case patient is not able to recover and participate in therapy but not willing to have this discussion. She told this land planner that she doesn't want anyone to tell the patient about colon mass as she is afraid he would give up. CM to continue to follow for discharge planning.
--- NOTE | 2021-04-26 12:25 | EKG ---
[place] [address] ELECTROCARDIOGRAM REPORT Name: BURT EDDY Mary Room: [address] ADM IN M.R.#: [id number] Admission: 03/18/21 Attend Phys: Kimberly Cui Discharge: Date of : [birth year] Date of Service: 04/25/21 0622 Report #: [id number] THIS REPORT FOR: //name// [facility] Test Date: 2021-04-25 Test Time: 06:22:05 Pat Name: BURT EDDY Department: Room: [address] Gender: M General Purchasing Agent: : [id number] Requested By: Ty Martinez Order Number: [id number] Jess MD: Dmitri Ahn Measurements Intervals [place] Rate: 77 P: MD: QRS: 33 QRSD: 85 T: -1 QT: 347 QTc: 393 Interpretive Statements Atrial flutter with predominant 4:1 AV block Borderline low voltage, extremity leads RSR' in V1 or V2, probably normal variant Compared to ECG 04/08/2021 16:35:59 Atrial flutter with borderline block is noted RSR' in V1 or V2 now present Ectopic atrial tachycardia, unifocal no longer present Myocardial infarct finding no longer present Electronically Signed On 04-26-2021 12:25:01 ELECTRICAL MAINTENANCE MECHANIC by Dmitri Ahn [email or web address] <ELECTRONICALLY SIGNED> By: Dmitri Ahn MD, [facility] 04/26/21 1225 Dmitri Ahn MD, [facility] /EPI
[2021-04-26 12:28] LABS: ALBUMIN 2.2 g/dL (3.4-5.0); CALCIUM 7.8 mg/dL (8.5-10.1); CREATININE 1.2 mg/dL (0.6-1.3); TOTAL BILIRUBIN 0.7 mg/dL (<0.1-1.0); TOTAL PROTEIN 5.7 g/dL (6.4-8.2)
[2021-04-26 12:37] LABS: POTASSIUM 2.9 mmol/L (3.5-5.1)
[2021-04-26 12:41] LABS: HEMATOCRIT 34.7 % (42.0-52.0); MCHC 31.7 g/dL (28.0-37.0); MCV 88.3 fL (80.0-100.0); MPV 9.1 fl. (7.2-11.1); NUCLEATED RBCS 0 /100WBC; PLATELET COUNT* 197 thou/uL (150-400); RBC 3.93 mil/uL (4.50-6.00); RDW-CV 19.3 % (10.5-14.5)
[2021-04-26 12:51] LABS: WBC 23.7 thou/uL (4.0-11.0)
[2021-04-26 13:18] LABS: ABSOLUTE LYMPHOCYTES 0.2 thou/uL (0.8-5.3); ABSOLUTE MONOCYTES 0.5 thou/uL (0.0-1.2)
[2021-04-26 13:20] LABS: PLATELET ESTIMATE ADEQUATE
[2021-04-26 16:23] LABS: ABSOLUTE BASOPHILS 0.1 thou/uL (0.0-0.2); ABSOLUTE EOSINOPHILS 0.2 thou/uL (0.0-0.7); ABSOLUTE LYMPHOCYTES 1.7 thou/uL (0.8-5.3); ABSOLUTE MONOCYTES 0.7 thou/uL (0.0-1.2); ABSOLUTE NEUTROPHILS 18.1 thou/uL (1.6-8.1); BASOPHILS 0.5 %; EOSINOPHILS 0.8 %; HEMATOCRIT 32.7 % (42.0-52.0); HEMOGLOBIN 10.4 gm/dL (14.0-18.0); LYMPHOCYTES 8.1 %; MCH 28.1 pg (26.0-34.0); MCHC 31.9 g/dL (28.0-37.0); MCV 87.9 fL (80.0-100.0); MONOCYTES 3.5 %; MPV 8.2 fl. (7.2-11.1); NUCLEATED RBCS 0 /100WBC; PLATELET COUNT* 161 thou/uL (150-400); POLYS 87.1 %; RBC 3.72 mil/uL (4.50-6.00); RDW-CV 19.9 % (10.5-14.5); WBC 20.8 thou/uL (4.0-11.0)
[2021-04-26 16:54] LABS: URINE BILIRUBIN NEGATIVE (Negative); URINE BLOOD NEGATIVE (Negative); URINE CLARITY CLEAR; URINE COLOR YELLOW; URINE GLUCOSE-RANDOM NEGATIVE (Negative); URINE KETONES NEGATIVE (Negative); URINE LEUKOCYTES-REFLEX NEGATIVE (Negative); URINE NITRITE-REFLEX NEGATIVE (Negative); URINE PROTEIN 1+ (Negative)
[2021-04-27] VITALS: BP 114/68; BP 134/67
[2021-04-27 04:00] VITALS: BP 133/55
[2021-04-27 07:18] LABS: ABSOLUTE EOSINOPHILS 0.4 thou/uL (0.0-0.7); ABSOLUTE LYMPHOCYTES 1.2 thou/uL (0.8-5.3); ABSOLUTE MONOCYTES 0.4 thou/uL (0.0-1.2); ABSOLUTE NEUTROPHILS 9.7 thou/uL (1.6-8.1); BASOPHILS 0.4 %; EOSINOPHILS 3.5 %; HEMATOCRIT 29.9 % (42.0-52.0); HEMOGLOBIN 9.9 gm/dL (14.0-18.0); LYMPHOCYTES 10.5 %; MCH 28.5 pg (26.0-34.0); MCV 86.1 fL (80.0-100.0); MONOCYTES 3.7 %; MPV 8.4 fl. (7.2-11.1); NUCLEATED RBCS 0 /100WBC; POLYS 81.9 %; RBC 3.47 mil/uL (4.50-6.00); RDW-CV 19.1 % (10.5-14.5); WBC 11.8 thou/uL (4.0-11.0)
[2021-04-27 07:31] LABS: ALBUMIN 1.9 g/dL (3.4-5.0); ALKALINE PHOSPHATASE 94 U/L (46-116); ANION GAP < 0 mmol/L (7-16); BUN 28 mg/dL (7-18); CALCIUM 7.1 mg/dL (8.5-10.1); CHLORIDE 114 mmol/L (98-107); CO2 38 mmol/L (21-32); CREATININE 1.2 mg/dL (0.6-1.3); GLUCOSE 147 mg/dL (70-99); MAGNESIUM 2.3 mg/dL (1.8-2.4); POTASSIUM 3.4 mmol/L (3.5-5.1); SGOT 21 U/L (15-37); SGPT 39 U/L (30-65); SODIUM 149 mmol/L (136-145); TOTAL BILIRUBIN 0.5 mg/dL (<0.1-1.0)
[2021-04-27 07:41] LABS: PLATELET COUNT* 120 thou/uL (150-400)
--- NOTE | 2021-04-27 08:00 | NUR ---
PATIENT TRANSFERRED TO ROOM 214 AT APPROXIMATELY 0040 FROM ICU. REPORT GIVEN FROM ICU NURSE. PATIENT ALERT BUT CONFUSED AT TIMES. ICU NURSE STATED THAT ALL DRAINS HAVE BEEN REMOVED AND CHEST TUBE WAS REMOVED. PATIENT IS NPO. TUBE FEEDING STARTED-JEVITY 1.5 @ 50ML/HR. PDEROZA TO DEPENDENT DRAINAGE WITH YELLOW URINE OUTPUT. RECTAL TUBE IN PLACE. IV FLUIDS STARTED-D5 @ 50ML/HR. VSS ON RA. PATIENT HAD NO DRESSING ON COCCYX AND RECTAL TUBE LEAKS SOME AT TIMES. BROWN CARE PERFORMED AND WOUND CLEANSED AND NEW DRESSING APPLIED. BOWEL SOUNDS POSITIVE, LUNGS DIMINISHED. +1 PULSES. PATIENT A-FIB CONTROLLED ON TELE MONITOR. FALL PRECAUTIONS IN PLACE AND HOURLY ROUNDS MADE. NURSING TO CONTINUE MONITORING. WILL CONTINUE WITH PLAN OF CARE.
[2021-04-27 09:22] VITALS: BP 135/62
--- NOTE | 2021-04-27 10:01 | OP ---
[address] [address] OPERATIVE REPORT Name: BURT EDDY Room: [address] IN .R.#: [id number] Admission: 03/18/21 Attend Phys: Ben Chiu Discharge: Date of : [birth year] Report #: [id number] THIS REPORT FOR: cc: Rafy Degroot MD,Rafy Cota,Jacky Lema DO ~ cc: Rafy Degroot MD, Kimberly Cui MD DATE OF SURGERY: 03/18/2021 REFERRING PHYSICIANS: Rafy Degroot MD and Kimberly Cui MD PREOPERATIVE DIAGNOSIS: Perforated viscus. POSTOPERATIVE DIAGNOSIS: Perforated duodenal ulcer and malnutrition. PROCEDURES: Exploratory laparotomy with repair of perforated duodenal ulcer with omental patch and a gastrojejunal feeding tube placement. SURGEON: Jacky Cota DO REPAIRER FINISHED METAL: Mathieu Morelos DO SECOND GENERAL CLAIMS AGENT: Student, Dr. Opal Briceño, MS-3. ANESTHESIA: General endotracheal. ESTIMATED BLOOD LOSS: Less than 50 mL. COMPLICATIONS: None. DESCRIPTION OF PROCEDURE: After obtaining proper consents and discussing risks and complications with the patient, he was taken to the operating room, laid in the supine position and administered general endotracheal anesthetic. He was then prepped and draped in the usual sterile fashion. A time-out was performed. We confirmed the appropriate patient and procedure. Preoperative antibiotics had been given. SCDs were in place. The patient had a Ellis catheter placed prior to the operating room as well. We then made a small skin incision in the periumbilical region. This was carried down through the skin into the subcutaneous tissue using electrocautery for hemostasis. Once the fascia was encountered, it was incised along the midline. The peritoneum was then grasped and elevated with hemostats and opened with Metzenbaum scissors. There was an immediate loja of air as soon as the peritoneum was opened. There was no foul odor noted, however. I then extended the peritoneal and fascial openings to allow for placement of my hand into the abdominal cavity. We did not see any fluid at this point. However, when I did place my hand down into the pelvis, [place] [address] OPERATIVE REPORT Name: BURT EDDY Room: [address] [place] [facility]#: [id number] Admission: 03/18/21 Attend Phys: Ben Chiu Discharge: Date of : [birth year] Report #: [id number] there was a very firm feeling sigmoid colon. At this point, I suspected that this was a sigmoid colon that had perforated, so I extended the incision inferiorly and then we did find a very redundant sigmoid colon, which was completely stool-filled and there were adhesions between loops of omentum; however, as I began exploring, I noted more bilious-appearing drainage and no foul odor or purulence, so we extended the incision more cephalad and then explored up around the stomach and immediately identified that there was a large amount of bilious fluid in the upper abdomen. I then explored further and identified a fairly large, about 1.5 cm hole in the duodenum just distal to the pylorus. I continued exploring and found no other abnormalities other than this and the firmness of the sigmoid colon. I did free up some of the sigmoid colon along the white line of Toldt to better visualize the entire colon and found no evidence of any perforation. At this point, we extended the incision more cephalad, so I could repair the duodenal perforation. This was done using interrupted 2-0 PDS sutures to close the hole and then we placed a vascular pedicle of omentum over top of the hole as well, which was sutured in place using a 2-0 Vicryl suture. We also elected at this point to place a gastrojejunostomy tube. The THERESA gastrojejunostomy tube was inserted through the abdominal wall and then we made a small gastrotomy and placed the tube and I was easily able to pass the tube through the area of perforation and distal through the duodenum and we could see the tip in the proximal jejunum. A pursestring suture was placed around the gastrotomy. We then also attached the stomach to the abdominal wall using a 2-0 PDS suture on a SH needle. Following this, the abdomen was copiously irrigated. We again checked and ran the entire small bowel and assured there were no other abnormalities. The patient was noted to have a large amount of stool burden in the entire colon. We then closed the peritoneum and fascia together using a #1 looped PDS suture. The subcutaneous tissues were closed using 3-0 Vicryl suture. Skin was closed using carola and then we placed a Prevena VAC dressing over top of this. Sponge, needle and instrument counts were found to be correct at the end of the procedure. <ELECTRONICALLY SIGNED> By: Jacky Cota DO 04/27/21 1001 1129 1159Ayolanda Cota DO /nt
--- NOTE | 2021-04-27 10:57 | NUR ---
WOUND NURSE: PATIENT SEEN FOR FOLLOW UP ASSESSMENT OF SACRAL PRESSURE INJURY. THIS IS NOW CLOSED WITH INTACT SCAR TISSUE. HOWEVER, PATIENT IS VERY HIGH RISK FOR REINJURY. WILL CONTINUE DRESSING CHANGES PRESCRIBED FOR PROTECTION FOR ONE MORE WEEK. THEN RECOMMEND USE OF SACRAL BORDERED FOAM DRESSING. SACRUM CLEANSED WTH SOAP AND WATER, RINSED, THEN PATTED DRY. APPLIED EXUDERM UNDER SURESITE TRANSPARENT DRESSING. PATIENT WAS ALSO BATHED AND COMPLETE LINEN CHANGE. PATIENT IS NOT TEACHEABLE.
[2021-04-27 11:50] VITALS: BP 125/46
--- NOTE | 2021-04-27 14:19 | NUR ---
PLAN OF CARE: PLAN TO CONSULT INPT ARU. PT/OT EVALS PENDING. CM WILL REMAIN AVAILABLE TO ASSIST AND FOLLOW NEEDED.
[2021-04-27 15:56] VITALS: BP 133/77
[2021-04-27 21:35] VITALS: BP 110/64
[2021-04-28 01:19] VITALS: BP 130/67
[2021-04-28 03:52] VITALS: BP 144/60
[2021-04-28 05:16] LABS: ABSOLUTE BASOPHILS 0.1 thou/uL (0.0-0.2); ABSOLUTE EOSINOPHILS 0.9 thou/uL (0.0-0.7); ABSOLUTE LYMPHOCYTES 1.4 thou/uL (0.8-5.3); ABSOLUTE MONOCYTES 0.6 thou/uL (0.0-1.2); ABSOLUTE NEUTROPHILS 8.3 thou/uL (1.6-8.1); EOSINOPHILS 8.1 %; HEMATOCRIT 29.4 % (42.0-52.0); HEMOGLOBIN 9.6 gm/dL (14.0-18.0); LYMPHOCYTES 12.2 %; MCH 28.5 pg (26.0-34.0); MCHC 32.7 g/dL (28.0-37.0); MONOCYTES 5.6 %; MPV 8.8 fl. (7.2-11.1); NUCLEATED RBCS 0 /100WBC; PLATELET COUNT* 91 thou/uL (150-400); POLYS 73.1 %; RBC 3.38 mil/uL (4.50-6.00); RDW-CV 19.1 % (10.5-14.5); WBC 11.3 thou/uL (4.0-11.0)
[2021-04-28 05:37] LABS: ALBUMIN 1.9 g/dL (3.4-5.0); CALCIUM 7.1 mg/dL (8.5-10.1); CREATININE 1.1 mg/dL (0.6-1.3); MAGNESIUM 2.3 mg/dL (1.8-2.4); PHOSPHORUS* 2.7 mg/dL (2.5-4.9); POTASSIUM 3.7 mmol/L (3.5-5.1); TOTAL BILIRUBIN 0.5 mg/dL (<0.1-1.0)
--- NOTE | 2021-04-28 05:37 | NUR ---
PT HAS SLEPT OFF AND ON OVERNIGHT. SOMETIMES WHEN AWAKE PULLS AT GOWN AND LINES. RU TL PICC, IVF INFUSING. IV POTASSIUM GIVEN OVERNIGHT ORDERED, ABX GIVEN ORDERED. JEVITY 1.5 FEEDING PER PUMP AT 50ML/HR.WATER FLUSHES 250MLS GIVEN ORDERED. ACCUCHECK Q6 HOURS, NO INSULIN NEEDED THIS SHIFT. PEDROZA DRAINING YELLOW URINE. RECTAL TUBE IN PLACE DRAINING LIGHT BROWN STOOL, SOME SMALL AMOUNT LEAKING AROUND TUBE. TELE AFIB RATE 70'S 80'S. DNR. AM LABS DRAWN AND TAKEN TO LAB.SACRAL WOUND WITH EXUDERM DRSG CDI. PT TURNED AND REPOSTIONED Q2 HOURS AND PRN FOR SKIN CARE AND COMFORT. NPO. ORAL CARE ATTEMPTED, PT BECOMES AGITATED AND PUSHES SWABS AND NURSES HANDS AWAY. DNR, BUT INTUBATION OK.
[2021-04-28 08:33] VITALS: BP 141/68
[2021-04-28 12:27] VITALS: BP 133/60
[2021-04-28 16:30] VITALS: BP 110/65
[2021-04-28 20:00] VITALS: BP 146/67
[2021-04-29] VITALS: BP 147/70
[2021-04-29 04:00] VITALS: BP 144/51
[2021-04-29 08:00] VITALS: BP 140/67
--- NOTE | 2021-04-29 10:21 | NUR ---
PLAN OF CARE: CM SPOKE TO THE PT AND HIS SPOUSE AT THE BEDSIDE TO DISCUSS D/C PLANNING AND SNF PLACEMENT. PT'S SPOUSE CONFIRMS THAT SHE STILL DESIRES TO HAVE PT GO TO SNF AT [facility]. CM CALLED AND CONFIRMED WITH [facility] THAT THEY HAD RECIEVED THE REFERRAL. GAURANG WITH ADMISSIONS INFORMS THAT SHE WOUDL NEED THE MANAGER GENERAL TO REVIEW THE CLINCIALS AND SHE WOULD RETURN CALL WITH DETERMINATION REGARDING ACCEPTANCE. CM WILL REMAIN AVAILABLE TO ASSIST AND FOLLOW NEEDED.
[2021-04-29 12:00] VITALS: BP 136/68
[2021-04-29 16:00] VITALS: BP 130/62
[2021-04-30] VITALS (7 sets, daily range): BP systolic 95–152; BP diastolic 49–98
[2021-04-30 04:42] LABS: ABSOLUTE BASOPHILS 0.1 thou/uL (0.0-0.2); ABSOLUTE LYMPHOCYTES 1.5 thou/uL (0.8-5.3); ABSOLUTE MONOCYTES 0.7 thou/uL (0.0-1.2); HEMATOCRIT 30.2 % (42.0-52.0); HEMOGLOBIN 9.9 gm/dL (14.0-18.0); MCHC 32.9 g/dL (28.0-37.0); MONOCYTES 6.8 %; RBC 3.44 mil/uL (4.50-6.00); RDW-CV 19.2 % (10.5-14.5)
[2021-04-30 04:44] LABS: ABSOLUTE NEUTROPHILS 7.3 thou/uL (1.6-8.1); EOSINOPHILS 9.5 %; LYMPHOCYTES 14.3 %; MCH 28.8 pg (26.0-34.0); MCV 87.6 fL (80.0-100.0); MPV 9.8 fl. (7.2-11.1); NUCLEATED RBCS 0 /100WBC; PLATELET COUNT* 111 thou/uL (150-400); POLYS 68.4 %; WBC 10.6 thou/uL (4.0-11.0)
[2021-04-30 05:13] LABS: ALBUMIN 1.9 g/dL (3.4-5.0); CALCIUM 7.6 mg/dL (8.5-10.1); CREATININE 1.1 mg/dL (0.6-1.3); MAGNESIUM 2.1 mg/dL (1.8-2.4); POTASSIUM 3.8 mmol/L (3.5-5.1); TOTAL BILIRUBIN 0.7 mg/dL (<0.1-1.0); TOTAL PROTEIN 5.4 g/dL (6.4-8.2)
--- NOTE | 2021-04-30 05:19 | NUR ---
PATIENT ALERT/ORIENTED TO SELF AT TIMES. PT IS AFIB ON ROUTE SERVICE MANAGER. PT WITH TRIPLE LUMAN PICC IN RT UPPER ARM; FLUIDS INFUSING PER DR ORDER. PT IS A DNR. PT WITH RECTAL TUBE; PEDROZA CATHETER WITH DARK YELLOW URINE AND J-G PEG TUBE WITH JEVITY 1.5 INFUSING AT 50ML/HR PER DR ORDER. H2O BOLUSES GIVEN. MEDS CRUSHED AND PUT THROUGH PEG TUBE. PT WITH MIDLINE INCISION REPRODUCER. PT WITH SACCRUM WOUND DRESSING C/D/I. FREQUENTLY USED ITEMS AND CALL LIGHT WITHIN REACH. SIDERAILS UPX3 AND BED ALARM ON. PT REPOSITIONED Q2H PER PROTOCAL. WILL CONTINUE TO MONITOR.
--- NOTE | 2021-04-30 13:20 | NUR ---
PLAN OF CARE: CM AND PHYSICIAN MET WITH THE PT AND HIS SON AT THE BEDSIDE TO DISCUSS POC AND SNF PLACEMENT VS PALLIATIVE CARE. CM AND PHYSICIAN PROVIDED CLINICAL UPDATE AND INFORMED OF OPTIONS AND CM D/C PLANNING PROCESS. PT AND SON DECIDED TO PURSUE SNF PLACEMENT AT [facility] FOR THE PT TO GIVE HIM THE OPORTUNITY TO GAIN STRENGTH AND MOBILITY PRIOR TO RETURNING HOME. CM INFORMED PT AND FAMILY THAT THE PT'S CLINICAL INFO HAD BEEN FAXED AND WE WERE CURRENTLY AWAITING INSURANCE AUTH. INSURANCE AUTH WOULD NOT BE RECEIVED OVER THE WEEKEND DUE TO HOLIDAY. CM WILL F/U WITH THE PT AND HIS SPOUSE ON MONDAY WITH INFO ABOUT INSURANCE AUTH FOR SNF. CM WILL REMAIN AVAILABLE TO AND FOLLOW NEEDED.
--- NOTE | 2021-04-30 19:35 | NUR ---
PT AWAKE AND ALERT AT BEDSIDE. VSS AFEBRILE. RIGHT PICC GREEN LIBNE FLUSHES WELL. JG TUBE INFUSING JEVITY 1.5 AT 50CC/HR. PT RECIEVING WATER FLUSHES WITH MEDICATIONS AND EVERY 6 HOURS 200CC. PT HELPED THIS RN GIVEN HIS WATER FLUSH THIS AM PT HELD THE JG TUBE FOR THIS RN. WILL CONTINUE TO MONITOR PLAN OF CARE.
[2021-05-01 09:11] LABS: HEMOGLOBIN 9.4 gm/dL (14.0-18.0); MCH 28.3 pg (26.0-34.0); MCHC 32.4 g/dL (28.0-37.0); MCV 87.2 fL (80.0-100.0); MPV 10.2 fl. (7.2-11.1); RBC 3.32 mil/uL (4.50-6.00); RDW-CV 19.4 % (10.5-14.5); WBC 9.7 thou/uL (4.0-11.0)
[2021-05-01 09:26] LABS: CALCIUM 7.8 mg/dL (8.5-10.1); CREATININE 1.1 mg/dL (0.6-1.3); POTASSIUM 3.4 mmol/L (3.5-5.1)
--- NOTE | 2021-05-01 09:29 | NUR ---
PT STABLE. NPO. TUBE FEEDING MAINTAINED. DENIED PAIN UP TO 0700 TODAY. PEDROZA, J/G TUBE, RECTAL TUBE PATENT UP TO 0700 THIS MORNING.
[2021-05-01 12:00] VITALS: BP 127/58
--- NOTE | 2021-05-01 12:03 | CON ---
[address] [address] CONSULTATION Name: BURT EDDY Room: [address] IN M.R.#: [id number] Admission: 03/18/21 Attend Phys: Ben Chiu Discharge: Date of : [birth year] Report #: [id number] THIS REPORT FOR: cc: Rafy Degroot MD, Vinod N. MD Khosla, Parveen K. MD ~ DATE OF CONSULTATION: 04/28/2021 HISTORY OF PRESENT ILLNESS: This is an 85-year-old male patient who is unable to provide much history. In fact, during my examination and history taking, he did not say much. Most of the history is taken by talking to the patient's as well as from the records. According to the , the patient has been confused here and he has been intermittently confused. A lot of effort was made to determine if this confusion is new or at least part of it was present before. She gives a history that he was able to drive, but she was always with him. He never drove by himself because he was having ambulation difficulty. With her help, he was able to drive. When I asked her if his memory was getting impaired, she said it was, but according to her, it was consistent with his age. Then, he had a perforation of duodenal ulcer and since then he has been pretty confused. He had a pretty profound problems since the surgery and he had intubation done and when I saw him, he was not talking at all. REVIEW OF SYSTEMS: I am not sure the patient's mentation was at his baseline. The mentation was a very good even before this happened. He does not carry a diagnosis of dementia, but says that she was always with him. The patient's record is indicated that he has atrial flutter. He has a chronic renal disease. I cannot tell if he had dementia or not here. He did have a B12 and thyroid level checked and that was unremarkable. He is being followed by multiple consultants at one time, he also had hyponatremia. This was his relevant 14-point review of system. PAST MEDICAL HISTORY: Positive for what looks like a compromised exam even in the baseline. He has been here for a long time. FAMILY HISTORY: Negative for early age stroke. SOCIAL HISTORY: He is and his provided history. She says he does not drink alcohol or smoke. PHYSICAL EXAMINATION: GENERAL: He was alert to me he does not say anything. said he talked to him before. He did move all 4 extremities, but attempt to do any motor or sensory system examination was unsuccessful. [place] [address] CONSULTATION Name: JOANNEBURT YOUNGER Room: [address] IN .R.#: [id number] Admission: 03/18/21 Attend Phys: Ben Chiu Discharge: Date of : [birth year] Report #: [id number] upgoing on both sides, but he cannot tell me about the position sense. There is no meningeal signs. VITAL SIGNS: Blood pressure is 141/68, respirations 14, pulse is 77, temperature is 97.8. LABORATORY DATA: White count is 18.3. GFR is 63. No imaging study was reviewed as none was done during this admission. IMPRESSION: 1. Significant encephalopathy. 2. I am not totally certain about the baseline condition as he may have at least some baseline dementia. 3. One of the history indicates that he did have atrial flutter and because of that shower of emboli need to be excluded. RECOMMENDATIONS: 1. If MRI can be done that will be the best test. 2. We will get an EEG done. 3. We will follow up after that. More than 50 minutes of time was spent taking care of this patient today and majority was spent counseling, coordinating and reviewing his extensive imaging study. Thank you very much for this referral. <ELECTRONICALLY SIGNED> By: Jovan Bloom MD 05/01/21 1203 1049 1216Jovan Bloom MD /nt
--- NOTE | 2021-05-01 12:03 | EEG ---
[address] [address] EEG STUDY REPORT Name: BURT EDDY Room: [address] IN M.R.#: [id number] Admission: 03/18/21 Attend Phys: Ben Chiu Discharge: Date of : [birth year] Report #: [id number] THIS REPORT FOR: cc: Rafy Degroot MD, Vinod N. MD Khosla,Jovan Pendleton MD ~ DATE OF SERVICE: 04/28/2021 This patient is being evaluated for altered mental status. EEG was done by placing the electrode by standard 10-20 system of electrode placement. Both referential and sequential montages were used for recording. Background activity in this patient's EEG is up to 9 Hz, but most of the time it is very slow because the patient was asleep at that time. Photic stimulation is unremarkable. No active epileptiform activity was noticed. IMPRESSION: This is an abnormal EEG, which is slow. That can occur was profound drowsiness, encephalopathy, effect of psychotropic medication, etc. In between reasonable EEG activity is also present, but for very short duration. Thank you very much for this referral. <ELECTRONICALLY SIGNED> By: Jovan Bloom MD 05/01/21 1203 1453 Mony Bloom MD /destiny
[2021-05-01 16:00] VITALS: BP 140/76
[2021-05-01 19:54] VITALS: BP 115/58
[2021-05-01 23:40] VITALS: BP 122/71
[2021-05-02 04:49] VITALS: BP 121/76
[2021-05-02 08:33] LABS: HEMATOCRIT 33.1 % (42.0-52.0); HEMOGLOBIN 10.6 gm/dL (14.0-18.0); MCH 28.1 pg (26.0-34.0); MCV 87.9 fL (80.0-100.0); MPV 10.7 fl. (7.2-11.1); RBC 3.76 mil/uL (4.50-6.00); RDW-CV 19.2 % (10.5-14.5); WBC 10.1 thou/uL (4.0-11.0)
[2021-05-02 08:43] VITALS: BP 124/57
[2021-05-02 09:00] LABS: CALCIUM 8.1 mg/dL (8.5-10.1); CREATININE 1.1 mg/dL (0.6-1.3); POTASSIUM 3.9 mmol/L (3.5-5.1)
--- NOTE | 2021-05-02 09:14 | NUR ---
PT STABLE. TUBE FEEDING MAINTAINED. PEDROZA AND RECTAL TUBE PATENT UP TO 0700 TODAY.
[2021-05-02 12:04] VITALS: BP 123/54
[2021-05-02 15:48] VITALS: BP 120/50
[2021-05-02 21:09] VITALS: BP 108/75
[2021-05-03 00:04] VITALS: BP 127/69
[2021-05-03 05:58] LABS: HEMATOCRIT 29.3 % (42.0-52.0); HEMOGLOBIN 9.7 gm/dL (14.0-18.0); MCH 28.3 pg (26.0-34.0); MCHC 32.9 g/dL (28.0-37.0); MCV 85.9 fL (80.0-100.0); MPV 10.1 fl. (7.2-11.1); RBC 3.41 mil/uL (4.50-6.00); RDW-CV 18.8 % (10.5-14.5); WBC 10.4 thou/uL (4.0-11.0)
--- NOTE | 2021-05-03 06:00 | NUR ---
PT IS ABLE TO COMMUNICATE HIS NEEDS TO STAFF WITH SOME DIFFICULTY; HE IS CONFUSED AND FORGETFUL. PT IS COMBATIVE AT TIMES. CURRENT PAIN MEDICATION REGIMEN HAS BEEN ADEQUATE FOR CONTROLLING HIS PAIN UP TO THIS TIME. RECTAL TUBE, PEDROZA AND G/J TUBE HAVE ALL BEEN PATENT UP TO THIS TIME. TUBE FEEDING MAINTAINED. POSSIBLE D/C TO A SNIF TODAY.
[2021-05-03 06:25] LABS: CALCIUM 7.8 mg/dL (8.5-10.1); CREATININE 1.2 mg/dL (0.6-1.3); POTASSIUM 3.9 mmol/L (3.5-5.1)
--- NOTE | 2021-05-03 07:05 | NUR ---
CHANGE OF SHIFT REPORT GIVEN PATIENT SEEN IN BED RESTING ASSUMED PATIENT CARE
[2021-05-03 08:00] VITALS: BP 119/68
--- NOTE | 2021-05-03 10:00 | NUR ---
RECTAL TUBE FOUND OUT LAYING IN BED DOCTOR NOTIFIED AND IS OK TO LEAVE OUT FOR NOW
--- NOTE | 2021-05-03 10:52 | EKG ---
[place] [address] ELECTROCARDIOGRAM REPORT Name: BURT EDDY Room: [address] ADM IN M.R.#: [id number] Admission: 03/18/21 Attend Phys: Kimberly Cui Discharge: Date of : [birth year] Date of Service: 05/02/21 [facility] Report #: [id number] THIS REPORT FOR: //name// [facility] Test Date: 2021-05-02 Test Time: 14:20:17 Pat Name: BURT EDDY Department: Room: [address] Gender: M Encoding Clerk: AF : 1935 Requested By: Kimberly Cui Order Number: [id number] Jess MD: Ty Martinez Measurements Intervals [place] Rate: 71 P: 0 MT: 208 QRS: 21 QRSD: 114 T: 15 QT: 451 QTc: 491 Interpretive Statements atrial tachycardia Borderline intraventricular conduction delay Borderline prolonged QT interval Compared to ECG 04/25/2021 06:22:05 no change Electronically Signed On 05-03-2021 10:52:23 FINISH ROLLS OPERATOR by Ty Martinez [email or web address] <ELECTRONICALLY SIGNED> By: Ty Martinez MD, FAC 05/03/21 1052 1420 1420 Ty Martinez MD, [facility] /EPI
--- NOTE | 2021-05-03 11:41 | NUR ---
PATIENT WITHOUT A COCCYX WOUND. WILL DC WOUND CONSULT.
[2021-05-03 12:22] VITALS: BP 113/55
--- NOTE | 2021-05-03 13:46 | NUR ---
PLAN OF CARE: PLAN FOR THE PT TO POSSIBLY D/C TO SNF TOMORROW. PT/ OT F/U WILL BE NEEDED TO ASSIST WITH THIS FOR CONTINUED INSURANCE AUTH. PT'S SPOUSE AND SON PLAN TO GO AND DO TOUR AT [facility] TODAY. CM WILL REMAIN AVAILABLE TO ASSIST AND FOLLOW NEEDED.
[2021-05-03 17:11] VITALS: BP 118/76
[2021-05-03 20:22] VITALS: BP 115/80
[2021-05-04] VITALS: BP 127/61
[2021-05-04 04:00] VITALS: BP 176/80
--- NOTE | 2021-05-04 04:17 | NUR ---
PT ALERT TO SELF, NOT VERBAL TO STAFF, CONFUSED, AGITATED. HE IS INCONTINENT OF BOWEL HAD SEVERAL BMS THIS SHIFT AND PEDROZA IS IN PLACE. JTUBE FLUSES WELL AND HE WAS ABLE TO RECEIVE MEDS. HE WOULD YELL OUT AT NIGHT BUT WHEN CHECKED ON ASLEEP. HE IS AGITATED AND RESISTANT TO CARE WHEN ATTEMPTING TO CLEAN UP ETC. RECEIVED ATIVAN AND FENTANYL FOR DISCOMFORT AND ANXIETY WHICH HELPED KEEP HIM CALM AND REST.
[2021-05-04 05:45] LABS: ABSOLUTE EOSINOPHILS 0.5 thou/uL (0.0-0.7); ABSOLUTE LYMPHOCYTES 1.4 thou/uL (0.8-5.3); ABSOLUTE MONOCYTES 0.7 thou/uL (0.0-1.2); ABSOLUTE NEUTROPHILS 6.2 thou/uL (1.6-8.1); BASOPHILS 0.3 %; EOSINOPHILS 5.8 %; HEMATOCRIT 26.8 % (42.0-52.0); HEMOGLOBIN 8.7 gm/dL (14.0-18.0); LYMPHOCYTES 16.4 %; MCH 28.5 pg (26.0-34.0); MCHC 32.4 g/dL (28.0-37.0); MCV 88.1 fL (80.0-100.0); MONOCYTES 7.7 %; MPV 9.6 fl. (7.2-11.1); NUCLEATED RBCS 0 /100WBC; PLATELET COUNT* 139 thou/uL (150-400); POLYS 69.8 %; RBC 3.04 mil/uL (4.50-6.00); WBC 8.8 thou/uL (4.0-11.0)
[2021-05-04 05:56] LABS: POTASSIUM 3.4 mmol/L (3.5-5.1)
[2021-05-04 12:00] VITALS: BP 131/44
[2021-05-04 16:00] VITALS: BP 124/65
[2021-05-04 21:58] VITALS: BP 132/51
[2021-05-05] VITALS: BP 103/60
[2021-05-05 08:00] VITALS: BP 129/73
[2021-05-05 12:00] VITALS: BP 124/53
[2021-05-05 12:22] LABS: ABSOLUTE EOSINOPHILS 0.3 thou/uL (0.0-0.7); ABSOLUTE MONOCYTES 0.5 thou/uL (0.0-1.2); ABSOLUTE NEUTROPHILS 7.9 thou/uL (1.6-8.1); BASOPHILS 0.3 %; EOSINOPHILS 3.3 %; HEMATOCRIT 31.6 % (42.0-52.0); HEMOGLOBIN 10.1 gm/dL (14.0-18.0); LYMPHOCYTES 10.6 %; MCH 28.2 pg (26.0-34.0); MCHC 32.1 g/dL (28.0-37.0); MCV 87.8 fL (80.0-100.0); MONOCYTES 5.2 %; MPV 8.7 fl. (7.2-11.1); NUCLEATED RBCS 0 /100WBC; PLATELET COUNT* 208 thou/uL (150-400); POLYS 80.6 %; RDW-CV 18.8 % (10.5-14.5); WBC 9.8 thou/uL (4.0-11.0)
[2021-05-05 12:24] LABS: CALCIUM 8.1 mg/dL (8.5-10.1); CREATININE 1.3 mg/dL (0.6-1.3); POTASSIUM 4.2 mmol/L (3.5-5.1)
[2021-05-05 15:50] VITALS: BP 136/71
--- NOTE | 2021-05-05 16:00 | NUR ---
PLAN OF CARE: CM INFORMED BY [facility], AND [facility] ADMISSIONS THAT BOTH FACILITIES WERE CURRENTLY 'BED LOCKED D/T COVID AND LOW STAFFING'. CM INFORMED PT'S SPOUSE OF THIS AND OF THE NEED TO ATTEMPT PLACEMENT FOR THE PT AT ANOTHER FACILITY. CM CALLED AND FAXED PT'S CLINCIAL INFO TO [facility] AND [facility]. CM WILL REMAIN AVAILABLE TO ASSIST AND FOLLOW NEEDED.
--- NOTE | 2021-05-05 19:40 | NUR ---
RESTING ON LOW AIR MATTRESS. TUBE FEEDING INFUSING PER ORDER. NO RESIDUAL. PEDROZA TO DEPENDENT DRAINAGE WITH YELLOW URINE. IV FLUIDS INFUSING WITHOUT DIFFICULTY. BECOMES ANXIOUS EASILY BUT CALMS SOME WITH REASSURANCE. ORIENTED TO NAME.
[2021-05-05 19:42] VITALS: BP 119/84
[2021-05-06] VITALS: BP 114/63
--- NOTE | 2021-05-06 05:26 | NUR ---
GAVE TYLENOL IN BEGINNING OF SHIFT WITH RELIEF. PATIENT MOANING AND HOLDING HIS ABDOMEN. IN THE MIDDLE OF THE NIGHT PATIENT BECAME ANXIOUS. GAVE PRN HYDROXZINE WITH RELIEF. THIS MORNING HOLDING ONTO ABDOMEN AND MOANING. GAVE PERCOCET. PATIENT TURNED EVERY TWO HOURS. HOURLY ROUNDING IN PROGRESS.
[2021-05-06 08:24] VITALS: BP 105/51
--- NOTE | 2021-05-06 14:48 | NUR ---
PT A&OxSELF. IV PATENT, INFUSING. TUBE FEED RUNNING PER ORDER. UP WITH MAX ASSIST. DENIED PAIN. PEDROZA PATENT. MULTIPLE BOWEL MOVEMENTS TODAY. WILL CONTINUE TO MONITOR.
[2021-05-06 15:24] VITALS: BP 118/46
[2021-05-06 20:00] VITALS: BP 111/55
[2021-05-07] VITALS: BP 120/61
--- NOTE | 2021-05-07 05:05 | NUR ---
ASSUMED CARE AT 1920. ALERT. PT DIFFICULT TO UNDERSTAND HE MOSTLY MUMBLES WORDS OR MOANS. RESTLESS AT TIMES. CAN BE IMPULSIVE, PUTTING LEGS OUT OF BED. NPO WITH JEVITY 1.5 @ 50 CC/HR TO GJ TUBE. RFA SALINE LOCK. PEDROZA CATHETER DD YELLOW URINE. INCONTINENT OF LIQUID STOOL X 2 THUS FAR. OFF AND ON RESTLESSNESS BUT SLEPT SOME. BED ALARM ON.
[2021-05-07 05:43] LABS: HEMATOCRIT 31.1 % (42.0-52.0); MCH 27.8 pg (26.0-34.0); MCHC 32.2 g/dL (28.0-37.0); MCV 86.5 fL (80.0-100.0); MPV 8.7 fl. (7.2-11.1); RBC 3.6 mil/uL (4.50-6.00); RDW-CV 18.5 % (10.5-14.5); WBC 9.2 thou/uL (4.0-11.0)
[2021-05-07 06:42] LABS: ALBUMIN 2.1 g/dL (3.4-5.0); CALCIUM 8.3 mg/dL (8.5-10.1); CREATININE 1.3 mg/dL (0.6-1.3); MAGNESIUM 2.1 mg/dL (1.8-2.4); POTASSIUM 4.3 mmol/L (3.5-5.1); TOTAL BILIRUBIN 0.3 mg/dL (<0.1-1.0)
[2021-05-07 08:15] VITALS: BP 128/62
[2021-05-07] MEDS ORDERED: B & O SUPPRETT1 EAC1 RECTAL (12:57)
[2021-05-07] MEDS ORDERED: ELIQUIS5 MG PO (12:57)
[2021-05-07] MEDS ORDERED: ZYPREXA 5 MG TAB5 M1 PO (12:57)
[2021-05-07] MEDS ORDERED: LANOXIN125 MCG PERTUBE (12:57)
[2021-05-07] MEDS ORDERED: HYDROXYZINE HCL25 M2 PO (12:57)
--- NOTE | 2021-05-07 14:58 | NUR ---
REPORT CALLED TO ELSIE AT [facility]. SHE WAS NOTIFIED OF MOST RECENT ASSESSMENT, ABNORMAL LABS, LAST V/S AND ABOUT G TUBE LEAKING. PATIENT TO LEAVE VIA AMBULANCE AT 1600.
--- NOTE | 2021-05-07 15:29 | NUR ---
CM RECIEVED A CALL FROM [facility] SNF TO INFORM THAT THEY ARE NO LONGER ABLE TO ACCEPT PT THEY NOW HAVE COVID CONTAINED AND HAVE STAFF. PT, SPOUSE AND SON INFORMED AND IN AGREEMENT. PLAN FOR PT TO TRANSFER BY [facility] NON-EMERGENT TRANSPORT AT 1600. RN TO CALL REPORT. CM WILL REMAIN AVAILABLE TO ASSIST AND FOLLOW NEEDED.
--- NOTE | 2021-05-07 18:38 | NUR ---
PATIENT DISCHARGE VIA AMBULANCE WITH AT BEDSIDE. REPORT CALLED TO IGNITE EARLIER THIS AFTERNOON. G TUBE CHECKED TODAY FOR PATENCY VIA AIR AUSCULTATION AND NO RESIDUAL NOTED FROM G TUBE WHEN CHECKED. PATENT TO REMAIN NPO AFTER SPEECH EVAL. ZIMMERMAN NOTIFIED OF LEAKING G TUBE. IV D/C WITHOUT DIFFICUTLY. INCONTINENT OF STOOL X3 TODAY. REPOSITIONED SEVEAL TIMES THROUGHOUT DAY. WAS ON SPECIALTY BED. NO OPEN WOUNDS NOTED. BARRIER CREAM APPLIED TO JANET BROWN AND BUTTOCK AREAS. FALL PRECAUTIONS IN PLACE TODAY.
--- NOTE | 2021-05-10 13:12 | EKG ---
[place] [address] ELECTROCARDIOGRAM REPORT Name: BURT EDDY Room: [address] DIS IN M.R.#: [id number] Admission: 03/18/21 Attend Phys: Kimberly Cui Discharge: 05/07/21 Date of : [birth year] Date of Service: 05/03/21 1726 Report #: [id number] THIS REPORT FOR: //name// [facility] Test Date: 2021-05-03 Test Time: 17:26:59 Pat Name: BURT EDDY Department: Room: [address] Gender: M Veterinary Poultry Inspector: MARIELENA : 1935 Requested By: Kimberly Cui Order Number: [id number] Jess MD: Dmitri Ahn Measurements Intervals [place] Rate: 92 P: MT: QRS: 28 QRSD: 90 T: 8 QT: 492 QTc: 609 Interpretive Statements Sinus rhythm Borderline T abnormalities, inferior leads Prolonged QT interval Baseline wander in lead(s) V5 Compared to ECG 05/02/2021 14:20:17 T-wave abnormality now present Ectopic atrial tachycardia, unifocal no longer present Electronically Signed On 05-10-2021 13:11:52 MANAGER OF SECURITY by Dmitri Ahn [email or web address] <ELECTRONICALLY SIGNED> By: Dmitri Ahn MD, [facility] 05/10/21 1311 1726 1726 Dmitri Ahn MD, [facility] /EPI
== END 2021-05-07 18:40 | DRG 853 ==
LOC: M.ERS 08:48 → M.ICU 11:34 → M.TBA-ER 11:34 → M.ICU 21:29 → M.ORTHSURG 03-28 18:04 → M.ICU 04-05 16:21 → M.2W 04-27 00:38
PROVIDERS: Emergency Medicine Emergency Medical Services; Internal Medicine; Internal Medicine Critical Care Medicine; Internal Medicine Nephrology; Nurse Practitioner Family; Pediatrics; Student in an Organized Health Care Education/Training Program; Surgery; ADMIT Internal Medicine; ATTEND Internal Medicine
PROC: 0DHA3UZ Insertion of Feeding Device into Jejunum, Percutaneous Approach (ICD-10-PCS; 2021-03-18)
PROC: 0DU907Z Supplement Duodenum with Autologous Tissue Substitute, Open Approach (ICD-10-PCS; 2021-03-18)
PROC: 0WJP0ZZ Inspection of Gastrointestinal Tract, Open Approach (ICD-10-PCS; 2021-03-18)
PROC: 0W993ZZ Drainage of Right Pleural Cavity, Percutaneous Approach (ICD-10-PCS; principal; 2021-03-23)
PROC: 30233N1 Transfusion of Nonautologous Red Blood Cells into Peripheral Vein, Percutaneous Approach (ICD-10-PCS; 2021-03-24)
PROC: 0W9G30Z Drainage of Peritoneal Cavity with Drainage Device, Percutaneous Approach (ICD-10-PCS; 2021-04-02)
PROC: 5A1955Z Respiratory Ventilation, Greater than 96 Consecutive Hours (ICD-10-PCS; 2021-04-05)
PROC: 5A09357 Assistance with Respiratory Ventilation, Less than 24 Consecutive Hours, Continuous Positive Airway Pressure (ICD-10-PCS; 2021-04-05)
PROC: 0BH17EZ Insertion of Endotracheal Airway into Trachea, Via Natural or Artificial Opening (ICD-10-PCS; 2021-04-05)
PROC: 0W993ZZ Drainage of Right Pleural Cavity, Percutaneous Approach (ICD-10-PCS; 2021-04-06)
PROC: 0DBN8ZX Excision of Sigmoid Colon, Via Natural or Artificial Opening Endoscopic, Diagnostic (ICD-10-PCS; 2021-04-09)
PROC: 0D7E8DZ Dilation of Large Intestine with Intraluminal Device, Via Natural or Artificial Opening Endoscopic (ICD-10-PCS; 2021-04-09)
DX: A41.9 Sepsis, unspecified organism (principal); E43 Unspecified severe protein-calorie malnutrition; K26.5 Chronic or unspecified duodenal ulcer with perforation; J96.01 Acute respiratory failure with hypoxia; J18.9 Pneumonia, unspecified organism; G92.8 Other toxic encephalopathy; N17.0 Acute kidney failure with tubular necrosis; R65.21 Severe sepsis with septic shock; E87.0 Hyperosmolality and hypernatremia; K57.00 Diverticulitis of small intestine with perforation and abscess without bleeding; I48.19 Other persistent atrial fibrillation; J98.11 Atelectasis; L02.211 Cutaneous abscess of abdominal wall; I48.92 Unspecified atrial flutter; K56.699 Other intestinal obstruction unspecified as to partial versus complete obstruction; J91.8 Pleural effusion in other conditions classified elsewhere; E78.5 Hyperlipidemia, unspecified; N28.1 Cyst of kidney, acquired; N18.30 Chronic kidney disease, stage 3 unspecified; E87.5 Hyperkalemia; E86.0 Dehydration; I95.9 Hypotension, unspecified; I27.20 Pulmonary hypertension, unspecified; N32.89 Other specified disorders of bladder; E88.09 Other disorders of plasma-protein metabolism, not elsewhere classified; D64.9 Anemia, unspecified; Z20.822 Contact with and (suspected) exposure to COVID-19; K57.30 Diverticulosis of large intestine without perforation or abscess without bleeding; D69.6 Thrombocytopenia, unspecified; Z28.21 Immunization not carried out because of patient refusal; Z90.49 Acquired absence of other specified parts of digestive tract; Z88.0 Allergy status to penicillin; Z68.24 Body mass index [BMI] 24.0-24.9, adult

== ENCOUNTER 2021-05-10 12:55 | Emergency (ER) | payer OTHER ==
[~2021-05-10] VITALS: Ht 167.6 cm; Wt 58.0 kg
--- NOTE | ~2021-05-10 | EMS ---
[facility] [address] [place] [address] EMS Patient Care Report Name: BURT EDDY Room: [facility].R.#: [id number] Admission: Attend Phys: Discharge: Date of : [birth year] Report #: [id number] THIS REPORT FOR: //name// Report Transmitted: 05/10/2021 12:46 EMS Care Summary [facility] [place] Incident 1370 @ 05/10/2021 12:14 Incident Location [address] [place] [address] Patient BURT EDDY Male, 85 Years 1935 Patient Address [address] [place] [address] Patient History Acute kidney failure, unspecified,Anemia, unspecified,Pneumonia, unspecified organism,G-Tube, Patient Allergies , Chief Complaint Abdominal pain/discomfort Disposition Transported No Lights/[place] Dispatch Reason Sick Person Transported To [facility] Narrative [facility] DISPATCHED NON-EMERGENT TO [facility] FOR TRANSFER OF PT WITH CRACKED PEG TUBE. ARRIVED ON SCENE AND PROCEEDED TO PT ROOM WITH COT, MONITOR, AND JUMP BAG. MADE CONTACT WITH NURSING STAFF AND PT. PT HAD PEG TUBE PLACED AND SURGERY APPROXIMATELY 8 WEEKS PRIOR. PT HAS BEEN EXPERIENCING LEAKAGE AROUND THE TUBE. STAFF REPORTS TUBE CRACKED. PT EXPERIENCING ABDOMINAL PAIN AND PAIN ALL [facility] [address] [place] [address] EMS Patient Care Report Name: BURT EDDY Room: [facility]#: [id number] Admission: Attend Phys: Discharge: Date of : [birth year] Report #: [id number] OVER. PT CURRENTLY NPO. PT IS ALERT AND ORIENTED BUT HAS DIFFICULTY SPEAKING AND IS VERY SOFT. PT PRESENT AND ABLE TO ANSWER QUESTIONS AND SIGN CONSENT. STOCKROOM HELPER AUDREY CALLS [facility] AND VERIFIES PT CAN BE ACCEPTED. PT LOADED ONTO COT VIA DRAWSHEET WITH ASSISTANCE OF NURSING STAFF AND SECURED VIA SAFETY STRAPS. PT TAKEN ON COT TO AMBULANCE WHERE COT SECURED IN LOCKING MECHANISM. TRANSPORT INITIATED. ARRIVED AT DESTINATION WITH NO CHANGES IN PT COMPLAINT OR CONDITION. PT RESTING MOSTLY COMFORTABLE WITH OCCASIONAL PAIN ON MOVEMENT. PT TRAVELLING POV TO FACILITY. PT TAKEN TO ROOM AND TRANSFERRED TO ED BED VIA DRAW SHEET WITH ASSISTANCE OF NURSING STAFF. REPORT AND DOCUMENTATION GIVEN TO NURSING STAFF. PT CARE TRANSFERRED WITH ACCOMPANYING SIGNATURE FROM RN. UNIT CLEANED AND RETURNED TO SERVICE WITHOUT INCIDENT. Initial Vitals @12:49Pain: 08/08, @12:40Pain: 08/08, @12:40SpO2: 97, @12:49SpO2: 98, @12:40P: 82,R: 17,BP: 119/75, @12:49P: 87,R: 16,BP: 127/71, @12:40GCS: 15, @12:49GCS: 15, Assessments @12:26MENTAL:SKIN:HEENT:LUNG SOUNDS:ABDOMEN:PELVIS//GI:EXTREMITIES:PULSE:NEURO: Impression Acute abdomen Procedures @12:41Stroke Alert Timeline 12:00,Call Received 12:09,Dispatch Notified 12:09,Psap Call 12:14,Dispatched 12:14,En Route 12:22,On Scene 12:26,At Patient 12:40,Depart Scene 12:40,BP: / M,PULSE: ,RR: R,SPO2: Ox,ETCO2: ,BG: ,PAIN: 4,GCS: , 12:40,BP: / M,PULSE: ,RR: R,SPO2: 97 Ox,ETCO2: ,BG: ,PAIN: ,GCS: , 12:40,BP: 119/75 M,PULSE: 82,RR: 17 R,SPO2: Ox,ETCO2: ,BG: ,PAIN: ,GCS: , 12:40,BP: / M,PULSE: ,RR: R,SPO2: Ox,ETCO2: ,BG: ,PAIN: ,GCS: 15, [place] [address] EMS Patient Care Report Name: BURT EDDY Room: [facility]..#: [id number] Admission: Attend Phys: Discharge: Date of : [birth year] Report #: [id number] 12:41,Stroke Alert, 12:49,BP: / M,PULSE: ,RR: R,SPO2: Ox,ETCO2: ,BG: ,PAIN: 4,GCS: , 12:49,BP: / M,PULSE: ,RR: R,SPO2: 98 Ox,ETCO2: ,BG: ,PAIN: ,GCS: , 12:49,BP: 127/71 M,PULSE: 87,RR: 16 R,SPO2: Ox,ETCO2: ,BG: ,PAIN: ,GCS: , 12:49,BP: / M,PULSE: ,RR: R,SPO2: Ox,ETCO2: ,BG: ,PAIN: ,GCS: 15, 12:51,At Destination 13:07,Call Closed Disclaimer v1.1 Copyright 2021 [employer] This EMS Care Summary contains data elements from the applicable legal record (which may be displayed differently). It is designed to provide pertinent information for the following purposes: continuity of care, clinical quality, and state data reporting. The complete legal record is available to ED staff and administrators of the receiving hospital in [employer]'s Patient Tracker. All data is provided "as is."
[~2021-05-10 12:55] MED LIST: B & O SUPPRETT1 EAC1 RECTAL; B12 ACTIVE1000 MCG PO; CALCIUM + VITA1 EACH PO; CENTRUM SILVER1 EAC5 PO; D3-501250 MCG PO; ELIQUIS5 MG PO; FISH OIL 1,001000 M3 PO; HYDROXYZINE HCL25 M2 PO; IRON325 M1 PO; LANOXIN125 MCG PERTUBE; LIPITOR10 MG PO; LUMIGAN2.5 M1 OPHTHALMIC; METAMUCIL1 EAC1 PO; SAW PALMETTO450 MG PO; SUPER B-COMPL400 MCG PO; TIMOLOL GL0.5 %/5 M1 OPHTHALMIC; UNISOM50 MG PO; ZYPREXA 5 MG TAB5 M1 PO
[2021-05-10 13:17] LABS: ABSOLUTE BASOPHILS 0.1 thou/uL (0.0-0.2); ABSOLUTE EOSINOPHILS 0.5 thou/uL (0.0-0.7); ABSOLUTE MONOCYTES 0.5 thou/uL (0.0-1.2); BASOPHILS 1.3 %; EOSINOPHILS 4.8 %; HEMATOCRIT 38.1 % (42.0-52.0); HEMOGLOBIN 12.3 gm/dL (14.0-18.0); LYMPHOCYTES 17.8 %; MCH 27.6 pg (26.0-34.0); MCHC 32.3 g/dL (28.0-37.0); MCV 85.4 fL (80.0-100.0); MONOCYTES 4.9 %; MPV 7.8 fl. (7.2-11.1); NUCLEATED RBCS 0 /100WBC; PLATELET COUNT* 388 thou/uL (150-400); POLYS 71.2 %; RBC 4.46 mil/uL (4.50-6.00); RDW-CV 18.1 % (10.5-14.5); WBC 11.2 thou/uL (4.0-11.0)
--- NOTE | 2021-05-10 13:23 | EKG ---
[place] [address] ELECTROCARDIOGRAM REPORT Name: BURT EDDY Room: [facility]#: [id number] Admission: Attend Phys: Discharge: Date of : [birth year] Date of Service: 05/10/21 1313 Report #: [id number] THIS REPORT FOR: //name// [facility] ED Test Date: 2021-05-10 Test Time: 13:13:40 Pat Name: BURT EDDY Department: Room: Gender: Switching Clerk: : 1935 Requested By: Ramón Ladd Order Number: [id number] MD: Dmitri Ahn Measurements Intervals [place] Rate: 93 P: 0 NC: 229 QRS: 83 QRSD: 143 T: 172 QT: 332 QTc: 413 Interpretive Statements Sinus rhythm Prolonged NC interval Nonspecific intraventricular conduction delay Minimal ST depression Compared to ECG 05/03/2021 17:26:59 First degree AV block now present Intraventricular conduction delay now present ST (T wave) deviation now present T-wave abnormality no longer present Prolonged QT interval no longer present Electronically Signed On 05-10-2021 13:23:24 HUMANE AGENT by Dmitri Ahn [email or web address] <ELECTRONICALLY SIGNED> By: Dmitri Ahn MD, FAC 05/10/21 1323 1313 1313 Dmitri Ahn MD, [facility] /EPI
[2021-05-10 13:28] LABS: CALCIUM 9.1 mg/dL (8.5-10.1); CREATININE 1.2 mg/dL (0.6-1.3); POTASSIUM 4.6 mmol/L (3.5-5.1)
[2021-05-10 13:38] LABS: ALBUMIN 2.8 g/dL (3.4-5.0); TOTAL BILIRUBIN 0.3 mg/dL (<0.1-1.0); TOTAL PROTEIN 7.6 g/dL (6.4-8.2)
[2021-05-10 17:40] VITALS: BP 105/76
== END 2021-05-10 17:40 ==
LOC: M.ERS 12:55
PROVIDERS: Family Medicine
DX: K94.23 Gastrostomy malfunction (principal); Z90.49 Acquired absence of other specified parts of digestive tract; Z90.89 Acquired absence of other organs; Z98.890 Other specified postprocedural states; Z79.899 Other long term (current) drug therapy; Z88.0 Allergy status to penicillin; Y83.8 Other surgical procedures as the cause of abnormal reaction of the patient, or of later complication, without mention of misadventure at the time of the procedure; Y82.8 Other medical devices associated with adverse incidents

== ENCOUNTER 2021-06-16 10:36 | Emergency (ER) | payer OTHER ==
[~2021-06-16] VITALS: Ht 182.9 cm; Wt 59.0 kg
[2021-06-16 11:43] LABS: ABSOLUTE BASOPHILS 0.1 thou/uL (0.0-0.2); ABSOLUTE EOSINOPHILS 0.4 thou/uL (0.0-0.7); ABSOLUTE LYMPHOCYTES 2.6 thou/uL (0.8-5.3); ABSOLUTE MONOCYTES 1.4 thou/uL (0.0-1.2); ABSOLUTE NEUTROPHILS 11.3 thou/uL (1.6-8.1); BASOPHILS 0.4 %; EOSINOPHILS 2.7 %; HEMATOCRIT 31.8 % (42.0-52.0); HEMOGLOBIN 10.3 gm/dL (14.0-18.0); LYMPHOCYTES 16.5 %; MCH 26.8 pg (26.0-34.0); MCHC 32.4 g/dL (28.0-37.0); MCV 82.9 fL (80.0-100.0); MONOCYTES 8.6 %; MPV 7.4 fl. (7.2-11.1); NUCLEATED RBCS 0 /100WBC; PLATELET COUNT* 320 thou/uL (150-400); POLYS 71.8 %; RBC 3.84 mil/uL (4.50-6.00); RDW-CV 17.8 % (10.5-14.5); WBC 15.7 thou/uL (4.0-11.0)
[2021-06-16 11:56] LABS: CALCIUM 8.7 mg/dL (8.5-10.1); CREATININE 1.3 mg/dL (0.6-1.3); POTASSIUM 4.5 mmol/L (3.5-5.1)
[2021-06-16 12:01] LABS: ALBUMIN 2.4 g/dL (3.4-5.0); TOTAL BILIRUBIN 0.4 mg/dL (<0.1-1.0); TOTAL PROTEIN 6.9 g/dL (6.4-8.2)
[2021-06-16 16:07] VITALS: BP 104/70
== END 2021-06-16 16:08 | disposition home or self-care (01) ==
LOC: M.ERS 10:36
PROVIDERS: Family Medicine
DX: K94.23 Gastrostomy malfunction (principal); Z20.822 Contact with and (suspected) exposure to COVID-19; Z90.49 Acquired absence of other specified parts of digestive tract; Z90.89 Acquired absence of other organs; Z98.890 Other specified postprocedural states; Z79.899 Other long term (current) drug therapy; Z88.0 Allergy status to penicillin

== ENCOUNTER 2021-06-19 10:45 | Emergency (ER) | payer OTHER ==
[~2021-06-19] VITALS: Ht 177.8 cm; Wt 61.8 kg
[2021-06-19 11:07] VITALS: BP 113/60
== END 2021-06-19 11:09 | disposition home or self-care (01) ==
LOC: M.ERS 10:45
DX: K94.23 Gastrostomy malfunction (principal); Z90.49 Acquired absence of other specified parts of digestive tract; Z90.89 Acquired absence of other organs; Z88.0 Allergy status to penicillin; Z79.899 Other long term (current) drug therapy